=== PATIENT | female | born 1980 | race Caucasian/White ===

== ENCOUNTER 2018-05-08 21:48 | Emergency (ER) | payer SELFPAY ==
[2018-05-08 21:54] VITALS: BP 116/76
[2018-05-08] MEDS ORDERED: NACL 0.9% 1000 ML 1,000 ML IV ONE (22:10)
[2018-05-08 22:50] LABS: Basophils # (Auto) 0.1 K/mm3 (0.0-0.1); Basophils % (Auto) 0.7 % (0.0-1.8); Eosinophils # (Auto) 0.2 K/mm3 (0.0-0.4); Eosinophils % (Auto) 2.4 % (0.0-4.3); Hematocrit 39.3 % (30.3-42.9); Hemoglobin 12.7 gm/dl (10.1-14.3); Lymphocytes % (Auto) 33.3 % (13.4-35.0); Mean Corpuscular HGB Conc 32 % (30-34); Mean Corpuscular Hemoglobin 27 pg (28-32); Mean Corpuscular Volume 84 fl (79-97); Monocytes # (Auto) 0.5 K/mm3 (0.0-0.8); Monocytes % (Auto) 5.5 % (0.0-7.3); Platelet Count 344 K/mm3 (140-440); Red Cell Distribution Width 13.7 % (13.2-15.2)
[2018-05-08 22:59] LABS: HCG Qualitative,Urine Negative (Negative)
[2018-05-08 23:01] LABS: Bilirubin,Urine NEG (Negative); Blood,Urine SM (Negative); Color,Urine Colorless (Yellow); Mucus,Urine FEW /HPF; Protein,Urine <15 mg/dL mg/dL (Negative); Urobilinogen,Urine < 2.0 mg/dL (<2.0); WBC,Urine < 1.0 /HPF (0.0-6.0)
[2018-05-08 23:11] LABS: Alanine Aminotransferase 16 units/L (7-56); Albumin 4.3 g/dL (3.9-5); BUN/Creatinine Ratio 13; Blood Urea Nitrogen 10 mg/dL (7-17); Calcium 9.4 mg/dL (8.4-10.2); Hemolysis Index 8; Lipase 22 units/L (13-60)
--- NOTE | 2018-05-09 02:54 | Cat Scan Report ---
FINAL REPORT PROCEDURE: CT ABDOMEN PELVIS W CON TECHNIQUE: Computerized axial tomography of the abdomen and pelvis was performed after the IV injection of iodinated nonionic contrast. HISTORY: Lower ABD Pain near umbilicus. possible hernia COMPARISON: No prior studies are available for comparison. FINDINGS: Visualized lower thorax: Lungs are clear. There are multiple tiny calcified granulomas bilaterally.. Liver: Normal size and attenuation. Spleen: Normal size and attenuation. Gallbladder and biliary system: Normal. Pancreas: Normal. Adrenals: Normal. Kidneys: Normal. GI tract: There is no bowel obstruction, colitis or enteritis. The appendix is normal.. Lymph nodes and mesentery: Normal. Vasculature: Normal. Bladder: Normal. Reproductive organs: Uterus is unremarkable. There is a 2.8 centimeter cyst in the right ovary.. Peritoneum: There is no free pelvic fluid. There is no free air, abscess or adenopathy.. Musculoskeletal structures: No significant abnormality. Other: No hernias are identified.. IMPRESSION: There is no bowel obstruction, colitis or enteritis. The appendix is normal.. Uterus is unremarkable. There is a 2.8 centimeter cyst in the right ovary.. There is no free pelvic fluid. There is no free air, abscess or adenopathy.. No hernias are identified..
[2018-05-09] MEDS ORDERED: PERCOCET 5/325 PO ONE (03:16)
--- NOTE | 2018-05-09 05:11 | Emergency Department Report ---
ED Abdominal Pain HPI - General Chief Complaint: Abdominal Pain Stated Complaint: ABD PAIN X 2 DAYS Time Seen by Provider: 05/09/18 00:17 Source: patient, family Mode of arrival: Ambulatory Limitations: No Limitations - History of Present Illness MD Complaint: abdominal pain -: Gradual Radiation: none Migration to: no migration Severity: mild Severity scale (0 -10): 1 Quality: sharp Consistency: intermittent Improves With: nothing Worsens With: other (standing or coughing) Associated Symptoms: denies other symptoms - Related Data Previous Rx's Medication Instructions Recorded Last Taken Type Hyoscyamine Subl [Levsin Sl 0.125 0.125 mg SL Q6HR PRN #20 tab 05/09/18 Unknown Rx TAB] Ketorolac [Toradol] 10 mg PO Q6H PRN #12 tablet 05/09/18 Unknown Rx Allergies Allergy/AdvReac Type Severity Reaction Status Date / Time No Known Allergies Allergy Verified 05/09/18 00:31 ED Review of Systems ROS: Stated complaint: ABD PAIN X 2 DAYS Other details as noted in HPI Constitutional: denies: chills, fever Eyes: denies: eye pain, eye discharge, vision change ENT: denies: ear pain, throat pain Respiratory: denies: cough, shortness of breath, wheezing Cardiovascular: denies: chest pain, palpitations Endocrine: no symptoms reported Gastrointestinal: denies: abdominal pain, nausea, diarrhea Genitourinary: denies: urgency, dysuria, discharge Musculoskeletal: denies: back pain, joint swelling, arthralgia Skin: denies: rash, lesions Neurological: denies: headache, weakness, paresthesias Psychiatric: denies: anxiety, depression Hematological/Lymphatic: denies: easy bleeding, easy bruising ED Past Medical Hx - Past Medical History Additional medical history: pt has ovarian cyst presently - Social History Smoking Status: Never Smoker Substance Use Type: None - Medications Home Medications: Home Medications Medication Instructions Recorded Confirmed Last Taken Type Hyoscyamine Subl [Levsin Sl 0.125 0.125 mg SL Q6HR PRN #20 tab 05/09/18 Unknown Rx TAB] Ketorolac [Toradol] 10 mg PO Q6H PRN #12 tablet 05/09/18 Unknown Rx ED Physical Exam - General Limitations: No Limitations General appearance: alert, in no apparent distress - Head Head exam: Present: atraumatic, normocephalic - Eye Eye exam: Present: normal appearance - ENT ENT exam: Present: mucous membranes moist - Neck Neck exam: Present: normal inspection - Respiratory Respiratory exam: Present: normal lung sounds bilaterally. Absent: respiratory distress - Cardiovascular Cardiovascular Exam: Present: regular rate, normal rhythm. Absent: systolic murmur, diastolic murmur, rubs, gallop - GI/Abdominal GI/Abdominal exam: Present: soft, tenderness (tenderness just distal to the umbilicus. Small protrusion is appreciated when increasing intra-abdominal pressures. Area is reducible), normal bowel sounds. Absent: guarding (no [place]. No Rovsing. No Elmer), rebound, rigid, diminished bowel sounds, hyperactive bowel sounds, hypoactive bowel sounds - Extremities Exam Extremities exam: Present: normal inspection. Absent: calf tenderness - Back Exam Back exam: Present: normal inspection, tenderness. Absent: CVA tenderness (R), muscle spasm, paraspinal tenderness, vertebral tenderness - Neurological Exam Neurological exam: Present: alert, oriented X3, CN II-XII intact - Psychiatric Psychiatric exam: Present: normal affect, normal mood. Absent: anxious, flat affect, manic - Skin Skin exam: Present: warm, dry, intact, normal color. Absent: rash ED Course Vital Signs 05/08/18 05/08/18 05/09/18 21:53 22:03 03:49 Temperature 99.1 F 99.1 F Pulse Rate 102 H 102 H 77 Respiratory 18 18 16 Rate Blood Pressure 116/76 116/76 O2 Sat by Pulse 98 96 97 Oximetry ED Medical Decision Making - Lab Data Result diagrams: 05/08/18 22:33 05/08/18 22:33 Critical care attestation.: If time is entered above; I have spent that time in minutes in the direct care of this critically ill patient, excluding procedure time. ED Disposition Clinical Impression: Abdominal pain, Ovarian cyst Disposition: - TO HOME OR SELFCARE Is pt being admited?: No Does the pt Need Aspirin: No Condition: Stable Instructions: Abdominal Pain (ED) Prescriptions: Hyoscyamine Subl [Levsin Sl 0.125 TAB] 0.125 mg SL Q6HR PRN #20 tab PRN Reason: abdominal pain Ketorolac [Toradol] 10 mg PO Q6H PRN #12 tablet PRN Reason: Pain Referrals: [facility] [Provider Group] - 2-3 Days PRIMARY CARE,MD [Primary Care Provider] - 3-5 Days Forms: Accompanied Note, Work/School Release Form(ED)
== END 2018-05-09 03:48 | disposition home or self-care (01) ==
LOC: ED 21:48
DX: R10.9 Unspecified abdominal pain (principal); N83.299 Other ovarian cyst, unspecified side
CPT/HCPCS: 36415; 74177; 80053; 81001; 81025; 83690; 85025; 99284; J7030; Q9967

== ENCOUNTER 2019-01-15 23:27 | Emergency (ER) | payer OTHER ==
[2019-01-15 23:47] VITALS: BP 109/67
[2019-01-16 00:20] LABS: Basophils % (Auto) 0.4 % (0.0-1.8); Eosinophils # (Auto) 0.2 K/mm3 (0.0-0.4); Hematocrit 34.6 % (30.3-42.9); Hemoglobin 11.7 gm/dl (10.1-14.3); Lymphocytes # (Auto) 2.4 K/mm3 (1.2-5.4); Lymphocytes % (Auto) 31.2 % (13.4-35.0); Mean Corpuscular HGB Conc 34 % (30-34); Mean Corpuscular Volume 85 fl (79-97); Monocytes # (Auto) 0.5 K/mm3 (0.0-0.8); Monocytes % (Auto) 6.6 % (0.0-7.3); Platelet Count 312 K/mm3 (140-440); Red Blood Count 4.09 M/mm3 (3.65-5.03); Red Cell Distribution Width 13.6 % (13.2-15.2)
[2019-01-16 00:39] LABS: Bilirubin,Urine NEG (Negative); Color,Urine Yellow (Yellow)
[2019-01-16 00:40] LABS: Amorphous Crystals,Urine Few; Blood,Urine NEG (Negative); Mucus,Urine FEW /HPF; Protein,Urine <15 mg/dL mg/dL (Negative); RBC,Urine < 1.0 /HPF (0.0-6.0); Urobilinogen,Urine < 2.0 mg/dL (<2.0)
[2019-01-16] MEDS ORDERED: TYLENOL PO ONE (02:50)
--- NOTE | 2019-01-16 02:55 | Emergency Department Report ---
ED Female HPI - General Chief complaint: Abdominal Pain Stated complaint: ABD PAIN Time Seen by Provider: 01/16/19 02:51 Source: patient Mode of arrival: Ambulatory Limitations: No Limitations - History of Present Illness Initial comments: Patient is a A0 38-year-old female in no past medical history who is approximately 14 days crustacean and presents to the ED, in no acute onset persistent pelvic pain diffusely for the last 2 days. Patient states that the pain is constant and persistent since onset. Patient denies vaginal bleeding, dysuria, urinary frequency and urgency, vaginal discharge, low back pain, dizziness, fever, chills, nausea, vomiting, headache, cough, chest pain or shortness of breath. MD Complaint: pelvic pain -: Sudden, days(s) (2) Location: suprapubic Radiation: non-radiating, suprapubic Severity: severe Severity scale (0 -10): 7 Quality: cramping, sharp, aching Consistency: constant Improves with: none Worsens with: movement Are you Now?: Yes (14 weeks gestation) Associated Symptoms: abdominal pain. denies: vaginal discharge, vaginal bleeding, nausea/vomiting, fever/chills, headaches, loss of appetite, dysuria, hematuria, rash, seizure, shortness of breath, syncope, weakness - Related Data Sexually active: Yes : 3 Para: 2 A: 0 Previous Rx's Medication Instructions Recorded Last Taken Type Hyoscyamine Subl [Levsin Sl 0.125 0.125 mg SL Q6HR PRN #20 tab 05/09/18 Unknown Rx TAB] Ketorolac [Toradol] 10 mg PO Q6H PRN #12 tablet 05/09/18 Unknown Rx Allergies Allergy/AdvReac Type Severity Reaction Status Date / Time No Known Allergies Allergy Verified 05/09/18 00:31 ED Review of Systems ROS: Stated complaint: ABD PAIN Other details as noted in HPI Constitutional: denies: chills, fever Eyes: denies: eye pain, eye discharge, vision change ENT: denies: ear pain, throat pain Respiratory: denies: cough, shortness of breath, wheezing Cardiovascular: denies: chest pain, palpitations Endocrine: no symptoms reported Gastrointestinal: abdominal pain (suprapubic). denies: nausea, vomiting, diarrhea, constipation, hematemesis, hematochezia Genitourinary: other (Pelvic pain). denies: urgency, dysuria, discharge Musculoskeletal: denies: back pain, joint swelling, arthralgia Skin: denies: rash, lesions Neurological: denies: headache, weakness, paresthesias Psychiatric: denies: anxiety, depression Hematological/Lymphatic: denies: easy bleeding, easy bruising ED Past Medical Hx - Past Medical History Previous Medical History?: Yes Additional medical history: pt has ovarian cyst. Constipation - Surgical History Past Surgical History?: No - Social History Smoking Status: Never Smoker Substance Use Type: None - Medications Home Medications: Home Medications Medication Instructions Recorded Confirmed Last Taken Type Hyoscyamine Subl [Levsin Sl 0.125 0.125 mg SL Q6HR PRN #20 tab 05/09/18 Unknown Rx TAB] Ketorolac [Toradol] 10 mg PO Q6H PRN #12 tablet 05/09/18 Unknown Rx ED Physical Exam - General Limitations: No Limitations General appearance: alert, in no apparent distress - Head Head exam: Present: atraumatic, normocephalic, normal inspection - Eye Eye exam: Present: normal appearance, PERRL, EOMI. Absent: scleral icterus, conjunctival injection, nystagmus, periorbital swelling, periorbital tenderness - ENT ENT exam: Present: normal exam, normal orophraynx, mucous membranes moist, TM's normal bilaterally, normal external ear exam - Neck Neck exam: Present: normal inspection, full ROM. Absent: tenderness, meningismus, lymphadenopathy, thyromegaly - Respiratory Respiratory exam: Present: normal lung sounds bilaterally. Absent: respiratory distress, wheezes, rales, rhonchi, chest wall tenderness, accessory muscle use, decreased breath sounds, prolonged expiratory - Cardiovascular Cardiovascular Exam: Present: regular rate, normal rhythm. Absent: systolic murmur, diastolic murmur, rubs, gallop - GI/Abdominal GI/Abdominal exam: Present: soft, tenderness (Moderately tender suprapubic area with palpation, no guarding or rebound), normal bowel sounds. Absent: hyperactive bowel sounds, hypoactive bowel sounds, mass, bruit - Rectal Rectal exam: Present: deferred - Extremities Exam Extremities exam: Present: normal inspection, full ROM, normal capillary refill - Back Exam Back exam: Present: normal inspection, full ROM. Absent: tenderness, CVA tenderness (R), CVA tenderness (L), muscle spasm, paraspinal tenderness, vertebral tenderness - Neurological Exam Neurological exam: Present: alert, oriented X3, CN II-XII intact, normal gait, reflexes normal - Psychiatric Psychiatric exam: Present: normal affect, normal mood - Skin Skin exam: Present: warm, dry, intact, normal color. Absent: rash ED Course Vital Signs 01/15/19 23:43 Temperature 98.8 F Pulse Rate 82 Respiratory 18 Rate Blood Pressure 109/67 O2 Sat by Pulse 100 Oximetry - Reevaluation(s) Reevaluation #1: 01/16/19 02:56 Patient is alert and oriented 3 and is not in any distress with stable vital signs. Patient was treated in the ED with Tylenol for pain. Lab test results are reviewed and are all unremarkable including urinalysis. The ultrasound shows an IUP approximately 15 weeks and 2 days. heart rate of 152 beats a minute. No abnormalities findings were identified in the ultrasound. Patient was discharged home and advised to maintain a complete pelvic rest, take Tylenol as needed for pain and to follow-up with [employer] physician in 2 days for reevaluation. Patient was also advised to return to the ED immediately if symptoms get worse. 01/16/19 03:00 01/16/19 03:01 ED Medical Decision Making - Lab Data Result diagrams: 01/16/19 00:00 - Radiology Data Radiology results: report reviewed, image reviewed US: IUP of approximately 15 weeks and 2 days, and FHR of 152 bpm. No acute pathology identified - Medical Decision Making Patient is alert and oriented 3 and is not in any distress with stable vital signs. Patient was treated in the ED with Tylenol for pain. Lab test results are reviewed and are all unremarkable including urinalysis. The ultrasound shows an IUP approximately 15 weeks and 2 days. heart rate of 152 beats a minute. No abnormalities findings were identified in the ultrasound. Patient was discharged home and advised to maintain a complete pelvic rest, take Tylenol as needed for pain and to follow-up with [employer] physician in 2 days for reevaluation. Patient was also advised to return to the ED immediately if symptoms get worse. - Differential Diagnosis Threatened miscarriage; Abodminal pain in , Acuet UTI Critical care attestation.: If time is entered above; I have spent that time in minutes in the direct care of this critically ill patient, excluding procedure time. ED Disposition Clinical Impression: Threatened miscarriage, Abdominal pain during in second trimester Disposition: DC- TO HOME OR SELFCARE Is pt being admited?: No Does the pt Need Aspirin: No Condition: Stable Instructions: Threatened Miscarriage (ED), Abdominal Pain (ED) Additional Instructions: COMPLETE pelvic rest, take medications, Tylenol, as needed for pain every 4-6 hours. Follow-up with your [employer] physician in 2-3 days for reevaluation. Return to the ED immediately if symptoms get worse. Referrals: ANIBAL NGO MD [Primary Care Provider] - 3-5 Days Time of Disposition: 02:58 Print Language: JAMAICAN
--- NOTE | 2019-01-16 02:55 | Ultrasound Report ---
PROCEDURE: US OB >= 14 WEEKS FETUS TECHNIQUE: Real-time transabdominal sonography of the uterus, placenta, amniotic fluid, adnexa, and fetus was performed with image documentation. Measurements were obtained to determine age/size. M-mode Doppler was used to document heartbeat. ADDITIONAL GESTATION: None HISTORY: abdominal pain COMPARISONS: None. FINDINGS: MATERNAL: Uterus and cervix: The cervix is closed measures 5.2 cm in length. Adnexa and ovaries: Not visualized. IUP: Single live intrauterine gestation. Position: Cephalic Placental position: Fundal and right lateral, without previa . Amniotic fluid volume Normal. DALIA is 4.0 cm. Cardiac activity: Regular rhythm at 152 bpm. ANATOMY: Not evaluated. BIOMETRY: Biparietal diameter: 2.8 cm corresponding to 15 weeks and 1 day. Head circumference: 10.4 cm corresponding to 14 weeks and 6 days. abdominal circumference: 10.4 cm corresponding to 16 weeks and 2 days. Femur length: 1.6 cm corresponding to 14 weeks and 5 days. Mean Gestational Age (composite criteria) based on today's measurements: 15 weeks and 2 days. Estimated Due Date (earliest scan): 07/08/2019. IMPRESSION: Single live intrauterine gestation at 15 weeks and 2 days. Estimated due date: 07/08/2019. Anatomic survey suggested at 18-20 weeks. This document is electronically signed by Ruben Perez MD., January 16 2019 02:53:56 AM ET
== END 2019-01-16 03:10 | disposition home or self-care (01) ==
LOC: ED 23:27
DX: O20.0 Threatened abortion (principal); Z3A.15 15 weeks gestation of pregnancy; Z79.899 Other long term (current) drug therapy
CPT/HCPCS: 36415; 76805; 81001; 84702; 85025; 99284

== ENCOUNTER 2019-07-05 09:44 | Inpatient (IN) | payer OTHER ==
[2019-07-05] MEDS ORDERED: ePHEDrine SULFATE 50 MG/1 ML INJ IV PRN ×2 (10:51→17:48)
[2019-07-05] MEDS ORDERED: TERBUTALINE 1 MG/1 ML INJ SUB-Q PRN (10:51)
[2019-07-05] MEDS ORDERED: fentaNYL 100 MCG/2 ML INJ IV PRN (10:51)
[2019-07-05] MEDS ORDERED: LIDOCAINE (2%) 20 MG/1 ML VIAL 20 ML MDV INFILTRATI ONE (10:51)
[2019-07-05] MEDS ORDERED: OXYTOCIN 20 UNIT/1000ML DRIP 20 UNITS/1,000 ML BAG IV SCH (11:00)
[2019-07-05] MEDS ORDERED: OXYTOCIN DRIP 30 UNITS/500 ML BAG IV SCH (11:00)
--- NOTE | 2019-07-05 11:06 | History and Physical Report ---
History of Present Illness Date of examination: 07/05/19 Date of admission: 07/05/2019 Chief complaint: Leaking of water from vagina History of present illness: 39 year old presents to L&D with complaint of leaking clear fluid from vagina since 09:00 this morning and contractions which began around 05:00 this morning. Patient reports active movement. Patient denies vaginal bleeding. Patient received care at [facility] and she brings records with her. LMP 10/10/18. EDC 07/17/19. was uncomplicated; patient reports a history of 2 previous vaginal births of 9 lb. babies without complications. Hemoglobin A1C was 5.7 during this . According to records, patient passed her glucose challenge test and this baby is a normal sized baby. labs are as follows: O+, antibody screen negative, rubella immune, hepatitis B surface antigen negative, HIV negative, RPR nonreactive, chlamydia negative, gonorrhea negative, GBS negative, pap smear negative, 1 hour sugar test WNL. Past History Past Medical History: other (chronic constipation, colitis, GERD; history of large babies by vaginal delivery; history of anemia) Past Surgical History: no surgical history [employer] History: chlamydia (2013 and 2015, treated and cured). denies: abnormal PAP smear, gonorrhea, hepatitis B, hepatitis C, herpes, HIV, syphilis, trichomonas Family/Genetic History: diabetes, heart disease Social history: lives with family, full code. denies: smoking, alcohol abuse, prescription drug abuse, IV drug use - Obstetrical History Expected Date of Delivery: 07/17/19 Actual Gestation: 38 Week(s) 2 Day(s) : 3 Para: 2 Hx # Term Pregnancies: 2 Number of Pregnancies: 0 Spontaneous Abortions: 0 Induced : 0 Number of Living Children: 2 Medications and Allergies Allergies Allergy/AdvReac Type Severity Reaction Status Date / Time No Known Allergies Allergy Verified 05/09/18 00:31 Home Medications Medication Instructions Recorded Confirmed Last Taken Type Hyoscyamine Subl [Levsin Sl 0.125 0.125 mg SL Q6HR PRN #20 tab 05/09/18 Unknown Rx TAB] Ketorolac [Toradol] 10 mg PO Q6H PRN #12 tablet 05/09/18 Unknown Rx raNITIdine HCl [Zantac] 150 mg PO Q12H #30 tablet 01/16/19 Unknown Rx Active Meds: Active Medications Ephedrine Sulfate (Ephedrine Sulfate) 10 mg IV Q2M PRN PRN Reason: Hypotension Fentanyl (Sublimaze) 100 mcg IV Q2H PRN PRN Reason: Labor Pain Oxytocin/Sodium Chloride (Pitocin/Ns 20 Unit/1000ml Drip) 20 units in 1,000 mls @ 125 mls/hr IV DIRECT LINA Oxytocin/Sodium Chloride (Pitocin/Ns 30 Unit/500ml) 30 units in 500 mls @ 0 mls/hr IV TITR LINA; Protocol Lactated Ringer's (Lactated Ringers) 1,000 mls @ 125 mls/hr IV DIRECT LINA Lidocaine (Xylocaine 2%) 20 ml INFILTRATI ONCE ONE Stop: 07/05/19 10:52 Terbutaline Sulfate (Brethine) 0.25 mg SUB-Q ONCE PRN PRN Reason: Hyperstimulation/Hypertonicity Review of Systems All systems: negative (leaking of clear fluid from vagina and irregular contractions) - Vital Signs Vital signs: Vital Signs Pulse BP 86 123/71 07/05/19 10:01 07/05/19 10:01 Temp Pulse Resp BP Pulse Ox 97.7 F 86 19 123/71 07/05/19 10:02 07/05/19 10:02 07/05/19 10:02 07/05/19 10:02 - Physical Exam Abdomen: Positive: normal appearance, soft. Negative: distention, tenderness, guarding, rigidity Genitourinary (Female): Positive: normal external genitalia, normal perenium. Negative: perineal/vulvar lesions (no lesions seen on careful exam with bright light upon admission) Vagina: Positive: other (moderate amount of clear fluid leaking from vagina) Uterus: Positive: enlarged (S=D) Anus/Rectum: Positive: normal perianal skin Extremities: Positive: normal. Negative: tenderness, edema - Obstetrical FHR: category 1 Uterine Contraction Monitor Mode: External Cervical Dilatation: 1 Cervical Effacement Percentage: 50 station: -4 Uterine Contraction Pattern: Irregular Uterine Contraction Intensity: Mild Results All other labs normal. Assessment and Plan A: at 38 weeks, 2 days gestation. Spontaneous rupture of membranes. Not yet in active labor. GBS negative. P: Admit. Continuous EFM. Pitocin augmentation of labor. Discussed with patient risks and benefits of Pitocin augmentation of labor. Patient consented to Pitocin augmentation of labor.
[2019-07-05] MEDS: LACTATED RINGERS 1,000 ML IV SCH ×3 (12:51→17:51)
[2019-07-05 12:58] LABS: Hematocrit 30.6 % (30.3-42.9); Hemoglobin 9.8 gm/dl (10.1-14.3); Mean Corpuscular HGB Conc 32 % (30-34); Mean Corpuscular Volume 75 fl (79-97); Platelet Count 305 K/mm3 (140-440); Red Blood Count 4.06 M/mm3 (3.65-5.03); Red Cell Distribution Width 15.5 % (13.2-15.2)
--- NOTE | 2019-07-05 13:03 | Event Note ---
Date: 07/05/19 Noted elevated BPs on chart; spoke with patient's nurse re: this. According to the patient's nurse, the last 3 BPs and pulse recordings (which were elevated) do not belong to our patient; they belong to the patient who is now in the triage bed that our patient was initially in. Instructed nurse to please fix this situation so that the current triage patient's vital signs do not record on our patient's chart. Discussed this with patient and significant other.
[2019-07-05 14:09] LABS: Alanine Aminotransferase 7 units/L (7-56); Albumin 3.3 g/dL (3.9-5); BUN/Creatinine Ratio 20; Blood Urea Nitrogen 10 mg/dL (7-17); Calcium 9.1 mg/dL (8.4-10.2); Hemolysis Index 0; Uric Acid 4.4 mg/dL (3.5-7.6)
[2019-07-05] MEDS ORDERED: BUPIVACAINE/PF (0.25%) 2.5 MG/ML 10 ML VIAL INFILTRATI ONE ×2 (17:20→21:51)
[2019-07-05] MEDS ORDERED: NALOXONE 2 MG/2 ML INJ IV PRN (17:48)
--- NOTE | 2019-07-05 17:48 | Anesthesia Consultation ---
Anesthesia Consult and Med Hx Date of service: 07/05/19 - Airway Anesthetic Teeth Evaluation: Good ROM Head & Neck: Adequate Mental/Hyoid Distance: Adequate Mallampati Class: Class II Intubation Access Assessment: Good - Pulmonary Exam CTA: Yes - Cardiac Exam Cardiac Exam: RRR - Pre-Operative Health Status ASA Pre-Surgery Classification: ASA2, Emergency Proposed Anesthetic Plan: Epidural - Pulmonary Hx Asthma: No - Cardiovascular System Hx Hypertension: No - Central Nervous System Hx Seizures: No Hx Psychiatric Problems: No - Gastrointestinal Hx Gastroesophageal Reflux Disease: Yes - Endocrine Hx Renal Disease: No Hx Hypothyroidism: No Hx Hyperthyroidism: No - Hematic Hx Anemia: Yes Hx Sickle Cell Disease: No - Other Systems Hx Alcohol Use: No
[2019-07-05] MEDS ORDERED: fentaNYL-BUPIV 2 MCG/ML-0.125% 200 MCG/100 ML BAG EPIDURAL SCH (18:00)
--- NOTE | 2019-07-05 20:18 | Event Note ---
Date: 07/05/19 SVE -.
[2019-07-06] MEDS ORDERED: AMPICILLIN/NS 2 GM/100 ML 2 GM/100 ML BAG IV ONE (00:05)
[2019-07-06] MEDS ORDERED: ACETAMINOPHEN 325 MG/10.15 ML ORAL LIQD UNIT DOSE ONE (02:31)
[2019-07-06] MEDS ORDERED: GENTAMICIN 100 MG in SODIUM CHLORIDE 0.9% 100 ML IV SCH (02:33)
--- NOTE | 2019-07-06 02:48 | Event Note ---
Date: 07/06/19 SVE: thin anterior lip, +1 station. FHR baseline 155 with moderate to minimal variability. Variable FHR decelerations noted with contractions, decreasing to 80s-100s with return to normal baseline. Patient positioned in lateral position and oxygen applied per face mask at 10 LPM. Maternal temperature 101.5 per RN. Patient has been receiving Ampicillin and Gentamicin now started also. PO Tylenol given. Contacted Dr. Lisa and asked him to come in to expedite delivery due to variable FHR decelerations despite position change and decreasing FHR variability.
[2019-07-06] MEDS ORDERED: ACETAMINOPHEN 325 MG/10.15 ML ORAL LIQD UNIT DOSE PO ONE (03:00)
[2019-07-06] MEDS ORDERED: GENTAMICIN/NS 100 MG/100 ML 100 MG/100 ML BAG IV SCH (03:00)
[2019-07-06] MEDS ORDERED: OXYTOCIN 10 UNIT/1 ML INJ ONE (03:48)
[2019-07-06] MEDS ORDERED: miSOPROStol 200 MCG TAB ONE (03:56)
[2019-07-06] MEDS ORDERED: AMPICILLIN/NS 1 GM/50 ML 1 GM/50 ML BAG IV SCH (04:09)
[2019-07-06] MEDS ORDERED: BUTORPHANOL 2 MG/1 ML INJ ONE (04:11)
[2019-07-06] MEDS: LACTATED RINGERS 1,000 ML IV SCH (04:30)
[2019-07-06] MEDS ORDERED: MAGNESIUM HYDROXIDE (MOM) ORAL LIQD UDC PO PRN (05:24)
[2019-07-06] MEDS ORDERED: WITCH HAZEL/ GLYCERIN PAD TP PRN (05:24)
[2019-07-06] MEDS ORDERED: LANOLIN/ZINC/DIMETHICONE (LANSINOH) 7 GM TP PRN (05:24)
--- NOTE | 2019-07-06 05:32 | Procedure Note ---
OB Delivery Note - Delivery Date of Delivery: 07/06/19 Surgeon: DA GUTIERREZ Estimated blood loss: other (350 cc) - Vaginal Delivery presentation: vertex Delivery position: OA Intrapartum events: febrile- temp >100.3, mult.variable deceleratio, shoulder dystocia Delivery induction: oxytocin Delivery augmentation: pitocin Delivery monitor: external FHT, external uterine Route of delivery: Delivery placenta: spontaneous Delivery cord: 3 umbilical vessels Episiotomy: midline Delivery laceration: 2nd degree Delivery repair: vicryl Anesthesia: local, epidural Delivery comments: Spontaneous vaginal delivery at 03:48 of liveborn male weighing 3993 grams over 2nd degree midline episiotomy with apgars of 7/9. Left anterior shoulder dystocia, resolved with McRobers maneuver, suprapubic pressure, repositioning of shoulders to oblique. Immediately after 3 vessel cord was double clamped and cut and baby was taken to radiant warmer. NICU present for delivery. Spontaneous cry and respirations. Cord blood obtained. Spontaneous delivery of intact placenta and membranes at 03:53. EBL 350 cc. IM Pitocin (IV had come out) and rectal Cytotec given to control bleeding. Fundus firm and midline. 2nd degree midline episiotomy repaired with 2-0 vicryl and 3-0 vicryl in usual sterile fashion. No other lacerations noted. Vaginal sweep negative. Sponge count correct. Mother and baby stable.
[2019-07-06] MEDS ORDERED: AMPICILLIN/NS 2 GM/100 ML 2 GM/100 ML BAG IV SCH (06:00)
[2019-07-06] MEDS: IBUPROFEN 800 MG TAB PO PRN (06:00)
[2019-07-06] MEDS ORDERED: IBUPROFEN 600 MG TAB PO SCH (06:00)
[2019-07-06] MEDS: HYDROcodone/ACETAMINOPHEN 5-325 MG TAB PO PRN ×3 (06:00→20:21)
[2019-07-06] MEDS ORDERED: miSOPROStol 200 MCG TAB PR ONE (06:12)
[2019-07-06] MEDS ORDERED: OXYTOCIN 10 UNIT/1 ML INJ IM ONE (06:12)
--- NOTE | 2019-07-06 09:03 | Post Anesthesia Evaluation ---
- Post Anesthesia Evaluation Patient Participated: Yes Airway Patent: Yes Stable Respiratory Function: Yes Nausea/Vomiting: No Temp > 96.8F: Yes Pain Manageable: Yes Adequeate Hydration: Yes Anesthesia Complications: No Block Receding Appropriately: Yes Patient on Ventilator: No
[2019-07-06] MEDS ORDERED: BENZOCAINE/MENTHOL 20/0.5% TOP SPRAY 56 GM TP ONE (09:04)
[2019-07-06] MEDS ORDERED: BENZOCAINE/MENTHOL 20/0.5% TOP SPRAY 56 GM TP PRN (09:45)
[2019-07-06] MEDS: DOCUSATE SODIUM 100 MG CAP PO SCH ×2 (11:11→21:16)
[2019-07-06 16:30] LABS: Hematocrit 23.3 % (30.3-42.9); Hemoglobin 7.3 gm/dl (10.1-14.3)
[2019-07-06] MEDS ORDERED: LACTATED RINGERS 1,000 ML IV SCH (17:00)
[2019-07-06] MEDS ORDERED: LACTATED RINGERS 250 ML IV ONE (18:53)
[2019-07-06] MEDS: FERROUS SULFATE 325 MG TAB PO SCH ×2 (19:26→21:16)
[2019-07-07] MEDS: DOCUSATE SODIUM 100 MG CAP PO SCH ×2 (09:25→21:32)
[2019-07-07] MEDS: FERROUS SULFATE 325 MG TAB PO SCH ×2 (09:26→21:31)
--- NOTE | 2019-07-07 10:48 | Progress Note ---
Assessment and Plan - Patient Problems (1) Status post normal vaginal delivery Current Visit: Yes Status: Acute Plan to address problem: PPD 1 - stable Continue routine orders Anticipate discharge in 24 hours (2) Anemia due to blood loss, acute Current Visit: Yes Status: Acute Plan to address problem: Reports fatigue but denies dizziness, SOB, palpitations or headache On ferrous sulfate 325mg PO BID Continue current management Repeat H&H in 24 hours Subjective - Subjective Date of service: 07/07/19 Principal diagnosis: PPD #1; s/p Interval history: see H&P, Event Notes and OB/Delivery Procedure Note Patient reports: appetite normal, voiding normally, pain well controlled, other (fatigue), no dizzy ambulation : doing well Objective - Vital Signs Latest vital signs: Vital Signs Temp Pulse Resp BP BP BP Pulse Ox 07/07/19 08:53 97.6 F 85 18 103/52 95 07/07/19 01:02 98.7 F 91 H 18 98/50 97 07/06/19 21:21 18 07/06/19 20:21 18 07/06/19 16:18 98.1 F 76 20 88/44 87/45 96 07/06/19 12:10 98.2 F 20 L 20 94/38 96 Intake and Output 07/06/19 07/07/19 07/07/19 23:59 07:59 15:59 Intake Total 480 480 Balance 480 480 Intake: Intake, Free Water 480 480 Other: # Voids Void 2 1 - Exam Vulva: both: laceration/episiotomy Uterus: Present: normal, firm, fundal height at umbilicus Extremities: Present: normal Comments: small lochia - Labs Labs: Abnormal lab results 07/06/19 Range/Units 16:08 Hgb 7.3 L (10.1-14.3) gm/dl Hct 23.3 L D (30.3-42.9) %
[2019-07-07] MEDS: IBUPROFEN 800 MG TAB PO PRN (14:00)
[2019-07-07] MEDS: HYDROcodone/ACETAMINOPHEN 5-325 MG TAB PO PRN (20:20)
[2019-07-08] MEDS: IBUPROFEN 800 MG TAB PO PRN (05:07)
[2019-07-08 05:55] LABS: Hematocrit 21.1 % (30.3-42.9); Hemoglobin 6.8 gm/dl (10.1-14.3)
[2019-07-08] MEDS: FERROUS SULFATE 325 MG TAB PO SCH (09:17)
[2019-07-08] MEDS: DOCUSATE SODIUM 100 MG CAP PO SCH (09:17)
[2019-07-08] MEDS: HYDROcodone/ACETAMINOPHEN 5-325 MG TAB PO PRN (09:17)
--- NOTE | 2019-07-08 10:20 | Discharge Summary ---
Providers - Providers Date of Admission: 07/05/19 11:27 Date of discharge: 07/08/19 Attending physician: RANCHO SANTOS Primary care physician: ANIBAL NGO Hospitalization Reason for admission: active labor, IUP at term Delivery: Episiotomy: none Laceration: 2nd degree (healing as expected) Other procedures: none complications: none [place] baby: male Hospital course: See admission H & P; OB delivery summary and PP progress notes Condition at discharge: Stable Disposition: [id number] TO HOME OR SELFCARE - Discharge Diagnoses (1) Status post normal vaginal delivery Status: Acute (2) Anemia due to blood loss, acute Status: Acute Plan - Discharge Medications Prescriptions: Ferrous Sulfate [Feosol 325 MG tab] 325 mg PO BID 30 Days #60 tablet - Provider Discharge Summary Activity: routine, no sex for 6 weeks, no heavy lifting 4 weeks, no strenuous exercise Diet: other (Iron rich diet) Instructions: routine Additional instructions: [] Smoking cessation referral if applicable(refer to patient education folder for contact #) [] Refer to [facility] Booklet Call your doctor immediately for: * Fever > 100.5 * Heavy vaginal bleeding ( >1 pad per hour) * Severe persistent headache * Shortness of breath * Reddened, hot, painful area to leg or breast * Drainage or odor from incision. * Keep laceration site clean and dry at all times and follow doctor's instructions regarding bathing/showering * Continue daily oral iron supplementation as directed with OJ - Follow up plan Follow up: RANCHO SANTOS MD [Staff Physician] - 6 Weeks
[2019-07-08] MEDS ORDERED: IRON DEXTRAN COMPLEX 100 MG/2 ML INJ IM NR (12:30)
[2019-07-08 16:46] VITALS: BP 109/63
== END 2019-07-08 16:50 | disposition home or self-care (01) | DRG 806 ==
LOC: TRG 09:44 → LD 11:27 → OB 07-06 07:55
PROVIDERS: ADMIT Obstetrics & Gynecology; ATTEND Obstetrics & Gynecology
PROC: 10E0XZZ Delivery of Products of Conception, External Approach (ICD-10-PCS; principal; 2019-07-06)
PROC: 0KQM0ZZ Repair Perineum Muscle, Open Approach (ICD-10-PCS; 2019-07-06)
PROC: 3E033VJ Introduction of Other Hormone into Peripheral Vein, Percutaneous Approach (ICD-10-PCS; 2019-07-06)
PROC: 3E0R3BZ Introduction of Anesthetic Agent into Spinal Canal, Percutaneous Approach (ICD-10-PCS; 2019-07-06)
PROC: 00HU33Z Insertion of Infusion Device into Spinal Canal, Percutaneous Approach (ICD-10-PCS; 2019-07-06)
PROC: 0W8NXZZ Division of Female Perineum, External Approach (ICD-10-PCS; 2019-07-06)
DX: O66.0 Obstructed labor due to shoulder dystocia (principal); D62 Acute posthemorrhagic anemia; Z37.0 Single live birth; O99.03 Anemia complicating the puerperium; O99.62 Diseases of the digestive system complicating childbirth; K21.9 Gastro-esophageal reflux disease without esophagitis; K59.09 Other constipation; O76 Abnormality in fetal heart rate and rhythm complicating labor and delivery; O70.1 Second degree perineal laceration during delivery; Z3A.38 38 weeks gestation of pregnancy; Z83.3 Family history of diabetes mellitus; Z82.49 Family history of ischemic heart disease and other diseases of the circulatory system; Z79.899 Other long term (current) drug therapy
CPT/HCPCS: 36415; 59025; 80053; 83615; 84550; 85014; 85018; 85027; 86850; 86900; 86901; 88307; 96360; 96361; 96365; 96366; 96367; 96368; 96372; 96374; G0378; A6250; J0290; J0595; J1580; J1750; J2590; J3010; J7120

== ENCOUNTER 2019-07-10 12:26 | Emergency (ER) | payer OTHER ==
--- NOTE | 2019-07-10 12:32 | Emergency Department Report ---
Blank Doc - Documentation Documentation: 39-year-old female that presents with urinary retention s/p vaginal delivery l ast week. Was sent by OBGYN. This initial assessment/diagnostic orders/clinical plan/treatment(s) is/are subject to change based on patient's health status, clinical progression and re- assessment by fellow clinical providers in the ED. Further treatment and workup at subsequent clinical providers discretion. Patient/guardians urged not to elope from the ED as their condition may be serious if not clinically assessed and managed. Initial orders include: 1- Patient sent to MAIN for further evaluation and treatment 2- labs 3- UA
[2019-07-10 12:50] VITALS: BP 113/65
[2019-07-10 13:07] LABS: Basophils % (Auto) 0.4 % (0.0-1.8); Eosinophils # (Auto) 0.1 K/mm3 (0.0-0.4); Eosinophils % (Auto) 1.7 % (0.0-4.3); Hematocrit 23.1 % (30.3-42.9); Hemoglobin 7.6 gm/dl (10.1-14.3); Lymphocytes # (Auto) 1.1 K/mm3 (1.2-5.4); Lymphocytes % (Auto) 13.7 % (13.4-35.0); Mean Corpuscular HGB Conc 33 % (30-34); Mean Corpuscular Volume 76 fl (79-97); Monocytes # (Auto) 0.5 K/mm3 (0.0-0.8); Monocytes % (Auto) 6.3 % (0.0-7.3); Platelet Count 463 K/mm3 (140-440); Red Blood Count 3.04 M/mm3 (3.65-5.03)
[2019-07-10 13:25] LABS: Alanine Aminotransferase 33 units/L (7-56); Albumin 3.2 g/dL (3.9-5); BUN/Creatinine Ratio 17; Blood Urea Nitrogen 15 mg/dL (7-17); Calcium 9.2 mg/dL (8.4-10.2); Hemolysis Index 0
[2019-07-10 13:26] LABS: Bacteria,Urine 1+ /HPF (Negative); Bilirubin,Urine NEG (Negative); Blood,Urine SM (Negative); Color,Urine Yellow (Yellow); Protein,Urine <15 mg/dL mg/dL (Negative); Urobilinogen,Urine < 2.0 mg/dL (<2.0)
--- NOTE | 2019-07-10 14:41 | Emergency Department Report ---
ED Female HPI - General Chief complaint: Urogenital-Female Stated complaint: CANT URINATE Time Seen by Provider: 07/10/19 12:30 Source: patient Mode of arrival: Wheelchair Limitations: Language Barrier - History of Present Illness Initial comments: 39 yo F s/p vaginal delivery 4 days ago presents to ED from TERRITORY ACCOUNT EXECUTIVE's office for urinary retention. Pt states she was able to urinate this morning, but was only a small amount. Pt went to [facility] earlier and was instructed to come to the ER for a Rodriguez catheter, which was placed by RN prior to me seeing her. Complaint: other (urinary retention) -: This morning Severity: severe Quality: cramping Consistency: constant Improves with: none Worsens with: none Are you Now?: No Associated Symptoms: abdominal pain - Related Data Home Medications Medication Instructions Recorded Confirmed Last Taken Vitamin 1 tab PO DAILY 07/05/19 07/05/19 1 Day Ago ~07/04/19 1 Tablet Previous Rx's Medication Instructions Recorded Last Taken Type Hyoscyamine Subl [Levsin Sl 0.125 0.125 mg SL Q6HR PRN #20 tab 05/09/18 Unknown Rx TAB] Ketorolac [Toradol] 10 mg PO Q6H PRN #12 tablet 05/09/18 Unknown Rx raNITIdine HCl [Zantac] 150 mg PO Q12H #30 tablet 01/16/19 Unknown Rx Ferrous Sulfate [Feosol 325 MG tab] 325 mg PO BID 30 Days #60 tablet 07/08/19 Unknown Rx Fluconazole [Diflucan TAB] 150 mg PO ONCE #1 tablet 07/10/19 Unknown Rx Allergies Allergy/AdvReac Type Severity Reaction Status Date / Time No Known Allergies Allergy Verified 05/09/18 00:31 ED Review of Systems ROS: Stated complaint: CANT URINATE Other details as noted in HPI Comment: All other systems reviewed and negative Constitutional: denies: chills, fever Genitourinary: other (reports difficulty urinating) ED Past Medical Hx - Past Medical History Previous Medical History?: No Hx Hypertension: No Hx Diabetes: No Hx Deep Vein Thrombosis: No Hx Renal Disease: No Hx Sickle Cell Disease: No Hx Seizures: No Hx Asthma: No Hx HIV: No Additional medical history: pt has ovarian cyst. Constipation - Surgical History Past Surgical History?: No - Social History Smoking Status: Never Smoker Substance Use Type: None - Medications Home Medications: Home Medications Medication Instructions Recorded Confirmed Last Taken Type Hyoscyamine Subl [Levsin Sl 0.125 0.125 mg SL Q6HR PRN #20 tab 05/09/18 07/05/19 Unknown Rx TAB] Ketorolac [Toradol] 10 mg PO Q6H PRN #12 tablet 05/09/18 07/05/19 Unknown Rx raNITIdine HCl [Zantac] 150 mg PO Q12H #30 tablet 01/16/19 07/05/19 Unknown Rx Vitamin 1 tab PO DAILY 07/05/19 07/05/19 1 Day Ago History ~07/04/19 1 Tablet Ferrous Sulfate [Feosol 325 MG tab] 325 mg PO BID 30 Days #60 tablet 07/08/19 Unknown Rx Fluconazole [Diflucan TAB] 150 mg PO ONCE #1 tablet 07/10/19 Unknown Rx ED Physical Exam - General Limitations: Language Barrier General appearance: alert, in no apparent distress - Head Head exam: Present: atraumatic, normocephalic - Eye Eye exam: Present: normal appearance - ENT ENT exam: Present: mucous membranes moist - Neck Neck exam: Present: normal inspection - Respiratory Respiratory exam: Present: normal lung sounds bilaterally. Absent: respiratory distress - Cardiovascular Cardiovascular Exam: Present: regular rate, normal rhythm - GI/Abdominal GI/Abdominal exam: Present: soft. Absent: distended, tenderness - External exam: Present: other (Rodriguez catheter in place, clear urine in bag) - Extremities Exam Extremities exam: Present: normal inspection - Neurological Exam Neurological exam: Present: alert, oriented X3 - Psychiatric Psychiatric exam: Present: normal affect, normal mood - Skin Skin exam: Present: warm, dry, intact, normal color ED Course Vital Signs 07/10/19 07/10/19 07/10/19 12:30 12:42 12:46 Temperature 98.6 F Pulse Rate 83 Respiratory 16 Rate Blood Pressure 107/68 113/65 O2 Sat by Pulse 98 99 100 Oximetry 07/10/19 12:50 Temperature Pulse Rate Respiratory 18 Rate Blood Pressure O2 Sat by Pulse 100 Oximetry ED Medical Decision Making - Lab Data Result diagrams: 07/10/19 12:48 07/10/19 12:48 - Medical Decision Making 39-year-old female with urinary retention. Rodriguez currently in place. Urine shows 3+ yeast, so will give prescription for Diflucan. Patient advised to follow up with her TERRITORY ACCOUNT EXECUTIVE tomorrow. Return precautions given. - Differential Diagnosis UTI, urinary retention Critical care attestation.: If time is entered above; I have spent that time in minutes in the direct care of this critically ill patient, excluding procedure time. ED Disposition Clinical Impression: Acute urinary retention Disposition: TO HOME OR SELFCARE Is pt being admited?: No Condition: Stable Instructions: Rodriguez Catheter Placement and Care (ED), Acute Urinary Retention in Women (ED), Urinary Leg Bag (GEN) Prescriptions: Fluconazole [Diflucan TAB] 150 mg PO ONCE #1 tablet Referrals: PRIMARY CAREMD [Referring] - 24 Hours [facility] [Provider Group] - 24 Hours Time of Disposition: 14:46
== END 2019-07-10 15:42 | disposition home or self-care (01) ==
LOC: ED 12:26
DX: R33.9 Retention of urine, unspecified (principal); R10.9 Unspecified abdominal pain; K59.00 Constipation, unspecified; Z79.899 Other long term (current) drug therapy
CPT/HCPCS: 36415; 51702; 80053; 81001; 85025

== ENCOUNTER 2019-07-27 23:32 | Observation (INO) | payer OTHER ==
[2019-07-28] MEDS ORDERED: ACETAMINOPHEN 500 MG TAB PO ONE (00:28)
[2019-07-28] MEDS ORDERED: SODIUM CHLORIDE 0.9% 1000 ML 1,000 ML IV ONE (00:28)
[2019-07-28 00:30] LABS: Hematocrit 30.6 % (30.3-42.9); Hemoglobin 9.7 gm/dl (10.1-14.3); Mean Corpuscular HGB Conc 32 % (30-34); Mean Corpuscular Volume 78 fl (79-97); Platelet Count 456 K/mm3 (140-440); Red Blood Count 3.93 M/mm3 (3.65-5.03); Red Cell Distribution Width 18.3 % (13.2-15.2)
[2019-07-28 00:54] LABS: Alanine Aminotransferase 12 units/L (7-56); BUN/Creatinine Ratio 20; Blood Urea Nitrogen 16 mg/dL (7-17); Calcium 9.3 mg/dL (8.4-10.2); Hemolysis Index 22
[2019-07-28 01:29] LABS: Bacteria,Urine 1+ /HPF (Negative); Bilirubin,Urine NEG (Negative); Blood,Urine NEG (Negative); Color,Urine Yellow (Yellow); Mucus,Urine FEW /HPF; Protein,Urine <15 mg/dL mg/dL (Negative); Urobilinogen,Urine < 2.0 mg/dL (<2.0)
[2019-07-28 01:30] LABS: Hypochromasia 1+; Total Cells Counted 100
[2019-07-28 01:33] LABS: HCG Qualitative,Urine Negative (Negative)
[2019-07-28] MEDS ORDERED: SULFAMETHOXAZOLE/TRIMETHOPRIM 800/160MG DS TAB PO ONE (01:34)
[2019-07-28] MEDS ORDERED: NITROFURANTOIN MONOHYD/M-CRYST 100 MG CAP PO ONE (01:39)
--- NOTE | 2019-07-28 01:39 | Emergency Department Report ---
ED Abdominal Pain HPI - General Chief Complaint: Abdominal Pain Stated Complaint: ABD PAIN Time Seen by Provider: 07/28/19 00:15 Source: patient Mode of arrival: Ambulatory Limitations: Language Barrier (patient refuses interpretor reports she would like her friend to interpret at bedside) - History of Present Illness MD Complaint: abdominal pain (left side) -: Gradual, days(s) (1) Migration to: no migration Severity: mild Severity scale (0 -10): 1 Quality: cramping Consistency: intermittent Improves With: nothing Worsens With: nothing Associated Symptoms: constipation (reports vaginal delivery approximately 3 weeks ago. Reports currently on colace for constipation. Reports having problems with constipation). denies: nausea, vomiting, diarrhea, fever, chills, dysuria, hematemesis, hematochezia, melena, hematuria, anorexia, syncope - Related Data Home Medications Medication Instructions Recorded Confirmed Last Taken Vitamin 1 tab PO DAILY 07/05/19 07/05/19 1 Day Ago ~07/04/19 1 Tablet Previous Rx's Medication Instructions Recorded Last Taken Type Hyoscyamine Subl [Levsin Sl 0.125 0.125 mg SL Q6HR PRN #20 tab 05/09/18 Unknown Rx TAB] Ketorolac [Toradol] 10 mg PO Q6H PRN #12 tablet 05/09/18 Unknown Rx raNITIdine HCl [Zantac] 150 mg PO Q12H #30 tablet 01/16/19 Unknown Rx Ferrous Sulfate [Feosol 325 MG tab] 325 mg PO BID 30 Days #60 tablet 07/08/19 Unknown Rx Fluconazole [Diflucan TAB] 150 mg PO ONCE #1 tablet 07/10/19 Unknown Rx Nitrofurantoin Waller/M-Cryst 100 mg PO Q12HR #14 capsule 07/28/19 Unknown Rx [Macrobid CAP] Allergies Allergy/AdvReac Type Severity Reaction Status Date / Time No Known Allergies Allergy Verified 05/09/18 00:31 ED Review of Systems ROS: Stated complaint: ABD PAIN Other details as noted in HPI Other: GENERAL: No weight change, fatigue, fever, chills, or night sweats SKIN: No changes in skin or hair, no itching, no rashes, no jaundice HEAD: No trauma EYES: No blurriness, tearing, itching, acute visual loss, conjunctival discoloration, or scleral icterus EARS: No hearing loss, tinnitus, vertigo, or earache NOSE: No rhinorrhea, stuffiness, sneezing, itching, or epistaxis MOUTH: No bleeding gums, hoarseness, sore throat, or swelling CARDIAC: No new murmur, chest pain, palpitations, dyspnea on exertion, orthopnea, PND, or edema RESPIRATORY: No shortness of breath, wheeze, cough, sputum production, hemoptysis GI: Left sided abdominal pain and constipation. No nausea, vomiting, dysphagia, diarrhea, hematemesis, melena, hematochezia URINARY: No frequency, urgency, polyuria, dysuria, hematuria, or incontinence MUSCULOSKELETAL: No muscle weakness, joint stiffness, decrease in range of motion, redness, swelling NEUROLOGIC: No headache, syncope, loss of sensation, numbness, tingling, tremors, weakness, paralysis, seizures HEMATOLOGIC: No anemia, easy bruising, bleeding, petechiae, or purpura ENDOCRINE: No hot or cold intolerance, sweating, polyuria, polydipsia or, polyphagia no thyroid problems PSYCHIATRIC: No change in mood, no anxiety, no depression GENITAL: Female: No dishcarge, no bleeding, no frequency or dysmenorrhea ED Past Medical Hx - Past Medical History Previous Medical History?: Yes Hx Hypertension: No Hx Diabetes: No Hx Deep Vein Thrombosis: No Hx Renal Disease: No Hx Sickle Cell Disease: No Hx Seizures: No Hx Asthma: No Hx HIV: No Additional medical history: pt has ovarian cyst. Constipation - Surgical History Past Surgical History?: No - Social History Smoking Status: Never Smoker Substance Use Type: None - Medications Home Medications: Home Medications Medication Instructions Recorded Confirmed Last Taken Type Hyoscyamine Subl [Levsin Sl 0.125 0.125 mg SL Q6HR PRN #20 tab 05/09/18 07/05/19 Unknown Rx TAB] Ketorolac [Toradol] 10 mg PO Q6H PRN #12 tablet 05/09/18 07/05/19 Unknown Rx raNITIdine HCl [Zantac] 150 mg PO Q12H #30 tablet 01/16/19 07/05/19 Unknown Rx Vitamin 1 tab PO DAILY 07/05/19 07/05/19 1 Day Ago History ~07/04/19 1 Tablet Ferrous Sulfate [Feosol 325 MG tab] 325 mg PO BID 30 Days #60 tablet 07/08/19 Unknown Rx Fluconazole [Diflucan TAB] 150 mg PO ONCE #1 tablet 07/10/19 Unknown Rx Nitrofurantoin Waller/M-Cryst 100 mg PO Q12HR #14 capsule 07/28/19 Unknown Rx [Macrobid CAP] ED Physical Exam - General Limitations: Language Barrier - Other Other exam information: GENERAL: Patient in no acute distress HEAD: Normocephalic, atraumatic EYES: PERRLA, EOM intact, no scleral icterus, no conjunctival hemorrhage, visual stephens and acuity wnl NOSE: No tenderness, discharge, sinus tenderness MOUTH: No erythema, bleeding, exudate HEART: Regular rate and rhythm, no murmur, S1-S2 are auscultated, no edema, pulses are symmetric LUNGS: No respiratory distress. Bilateral breath sounds, No tachypnea, No retractions, No wheezing, rales, rhonchi ABDOMEN: Normal bowel sounds, abdomen soft, no tenderness, no rebound, no guarding, no distention, no masses, no CVA tenderness MUSCULOSKELETAL: Normal joint range of motion, no redness, no swelling, no tenderness NEUROLOGIC: Gross motor/sensation intact SKIN: Skin is warm and dry, no wounds, no rashes ED Course Vital Signs 07/27/19 23:43 Temperature 98.0 F Pulse Rate 80 Respiratory 18 Rate Blood Pressure 102/50 O2 Sat by Pulse 98 Oximetry ED Medical Decision Making - Lab Data Result diagrams: 07/28/19 00:06 07/28/19 00:06 Laboratory Results - last 24 hr 07/28/19 07/28/19 07/28/19 00:06 00:06 00:06 WBC 7.0 RBC 3.93 Hgb 9.7 L Hct 30.6 MCV 78 L MCH 25 L MCHC 32 RDW 18.3 H Plt Count 456 H Baso % (Auto) Pickle Water Pump Operator Add Manual Diff Complete Total Counted 100 Seg Neuts % (Manual) 44.0 Band Neutrophils % 0 Lymphocytes % (Manual) 45.0 H Reactive Lymphs % (Man) 0 Monocytes % (Manual) 6.0 Eosinophils % (Manual) 4.0 Basophils % (Manual) 1.0 Metamyelocytes % 0 Myelocytes % 0 Promyelocytes % 0 Blast Cells % 0 Nucleated RBC % Not Reportable Seg Neutrophils # Man 3.1 Band Neutrophils # 0.0 Lymphocytes # (Manual) 3.2 Abs React Lymphs (Man) 0.0 Monocytes # (Manual) 0.4 Eosinophils # (Manual) 0.3 Basophils # (Manual) 0.1 Metamyelocytes # 0.0 Myelocytes # 0.0 Promyelocytes # 0.0 Blast Cells # 0.0 WBC Morphology Not Reportable Hypersegmented Neuts Not Reportable Hyposegmented Neuts Not Reportable Hypogranular Neuts Not Reportable Smudge Cells Not Reportable Toxic Granulation Not Reportable Toxic Vacuolation Not Reportable Dohle Bodies Not Reportable Pelger-Huet Anomaly Not Reportable Dotty Rods Not Reportable Platelet Estimate Not Reportable Clumped Platelets Not Reportable Plt Clumps, EDTA Not Reportable Large Platelets Not Reportable Giant Platelets Not Reportable Platelet Satelliting Not Reportable Plt Morphology Comment Not Reportable RBC Morphology Not Reportable Dimorphic RBCs Not Reportable Polychromasia Not Reportable Hypochromasia 1+ Poikilocytosis Not Reportable Anisocytosis Not Reportable Microcytosis Not Reportable Macrocytosis Not Reportable Spherocytes Not Reportable Pappenheimer Bodies Not Reportable Sickle Cells Not Reportable Target Cells Not Reportable Tear Drop Cells Not Reportable Ovalocytes Not Reportable Helmet Cells Not Reportable Kaplan-Ardencroft Bodies Not Reportable [place] Rings Not Reportable [place] Cells Not Reportable Bite Cells Not Reportable Crenated Cell Not Reportable Elliptocytes Not Reportable Acanthocytes (Spur) Not Reportable Rouleaux Not Reportable Hemoglobin C Crystals Not Reportable Schistocytes Not Reportable Malaria parasites Not Reportable [place] Bodies Not Reportable Hem Pathologist Commnt No Sodium 139 Potassium 4.0 Chloride 102.0 Carbon Dioxide 24 Anion Gap 17 BUN 16 Creatinine 0.8 Estimated GFR > 60 BUN/Creatinine Ratio 20 Glucose 104 H Calcium 9.3 Total Bilirubin 0.20 AST 26 ALT 12 Alkaline Phosphatase 107 Total Protein 7.4 Albumin 4.0 Albumin/Globulin Ratio 1.2 Lipase 27 Urine Color Urine Turbidity Urine pH Ur Specific [place] Urine Protein Urine Glucose (UA) Urine Ketones Urine Blood Urine Nitrite Urine Bilirubin Urine Urobilinogen Ur Leukocyte Esterase Urine WBC (Auto) Urine RBC (Auto) U Epithel Cells (Auto) Urine Bacteria (Auto) Urine Mucus Urine Yeast (Budding) Urine HCG, Qual 07/28/19 00:29 WBC RBC Hgb Hct MCV MCH MCHC RDW Plt Count Baso % (Auto) Add Manual Diff Total Counted Seg Neuts % (Manual) Band Neutrophils % Lymphocytes % (Manual) Reactive Lymphs % (Man) Monocytes % (Manual) Eosinophils % (Manual) Basophils % (Manual) Metamyelocytes % Myelocytes % Promyelocytes % Blast Cells % Nucleated RBC % Seg Neutrophils # Man Band Neutrophils # Lymphocytes # (Manual) Abs React Lymphs (Man) Monocytes # (Manual) Eosinophils # (Manual) Basophils # (Manual) Metamyelocytes # Myelocytes # Promyelocytes # Blast Cells # WBC Morphology Hypersegmented Neuts Hyposegmented Neuts Hypogranular Neuts Smudge Cells Toxic Granulation Toxic Vacuolation Dohle Bodies Pelger-Huet Anomaly Dotty Rods Platelet Estimate Clumped Platelets Plt Clumps, EDTA Large Platelets Giant Platelets Platelet Satelliting Plt Morphology Comment RBC Morphology Dimorphic RBCs Polychromasia Hypochromasia Poikilocytosis Anisocytosis Microcytosis Macrocytosis Spherocytes Pappenheimer Bodies Sickle Cells Target Cells Tear Drop Cells Ovalocytes Helmet Cells Kaplan-Ardencroft Bodies [place] Rings [place] Cells Bite Cells Crenated Cell Elliptocytes Acanthocytes (Spur) Rouleaux Hemoglobin C Crystals Schistocytes Malaria parasites [place] Bodies Hem Pathologist Commnt Sodium Potassium Chloride Carbon Dioxide Anion Gap BUN Creatinine Estimated GFR BUN/Creatinine Ratio Glucose Calcium Total Bilirubin AST ALT Alkaline Phosphatase Total Protein Albumin Albumin/Globulin Ratio Lipase Urine Color Yellow Urine Turbidity Slightly-cloudy Urine pH 6.0 Ur Specific [place] 1.013 Urine Protein <15 mg/dl Urine Glucose (UA) Neg Urine Ketones Neg Urine Blood Neg Urine Nitrite Neg Urine Bilirubin Neg Urine Urobilinogen < 2.0 Ur Leukocyte Esterase Lg Urine WBC (Auto) 34.0 H Urine RBC (Auto) 7.0 U Epithel Cells (Auto) 4.0 Urine Bacteria (Auto) 1+ Urine Mucus Few Urine Yeast (Budding) 1+ Urine HCG, Qual Negative - Medical Decision Making Patient comfortable. Updated with results. Plan discharge with outpatient follow up. Return if any worsening. Critical care attestation.: If time is entered above; I have spent that time in minutes in the direct care of this critically ill patient, excluding procedure time. ED Disposition Clinical Impression: UTI (urinary tract infection) Qualifiers: Urinary tract infection type: site unspecified Hematuria presence: without hematuria Qualified Code(s): N39.0 - Urinary tract infection, site not specified Abdominal pain Qualifiers: Abdominal location: unspecified location Qualified Code(s): R10.9 - Unspecified abdominal pain Disposition: TO HOME OR SELFCARE Is pt being admited?: No Condition: Stable Instructions: Urinary Tract Infection in Women (ED), Abdominal Pain (ED) Prescriptions: Nitrofurantoin Waller/M-Cryst [Macrobid CAP] 100 mg PO Q12HR #14 capsule Referrals: REBECCA LOPEZ MD [Staff Physician] - 2-3 Days [facility] [Provider Group] - 2-3 Days Time of Disposition: 01:38
[2019-07-28] MEDS ORDERED: ONDANSETRON 4 MG/2 ML INJ IV ONE (01:47)
[2019-07-28] MEDS ORDERED: cefTRIAXone/NS 1 GM/50 ML 1 GM/50 ML BAG IV ONE (01:47)
[2019-07-28] MEDS ORDERED: KETOROLAC 30 MG/1 ML INJ IV ONE (01:48)
--- NOTE | 2019-07-28 03:12 | Cat Scan Report ---
CT ABDOMEN AND PELVIS WITH CONTRAST INDICATION / CLINICAL INFORMATION: Pain. TECHNIQUE: Axial CT images were obtained through the abdomen and pelvis after 100 cc Omnipaque 300 milligrams pe rcent IV contrast. All CT scans at this location are performed using CT dose reduction for ALARA by means of automated exposure control. COMPARISON: None available. FINDINGS: LOWER CHEST: No significant abnormality. Small hiatal hernia LIVER: No significant abnormality. GALLBLADDER: Mildly distended with several small calculi BILE DUCTS: Possible small calculus distal common bile duct. PANCREAS: No significant abnormality. SPLEEN: No significant abnormality. ADRENALS: No significant abnormality. RIGHT KIDNEY and URETER: No significant abnormality. LEFT KIDNEY and URETER: No significant abnormality. STOMACH and SMALL BOWEL: No significant abnormality. COLON: No significant abnormality. APPENDIX: No significant abnormality. PERITONEUM: No free fluid. No free air. No fluid collection. LYMPH NODES: No significant adenopathy. AORTA and ARTERIES: No significant abnormality. IVC and VEINS: No significant abnormality. URINARY BLADDER: No significant abnormality. REPRODUCTIVE ORGANS: No significant abnormality. Prominent uterus consistent with state ADDITIONAL FINDINGS: None. SKELETAL SYSTEM: No significant abnormality. IMPRESSION: 1. Cholelithiasis 2. Possible choledocholithiasis, recommend clinical correlation 3. Hiatal hernia 4. uterus Signer Name: Bi Dove MD Signed: 07/28/2019 3:08 AM Workstation Name: [id number]
[2019-07-28] MEDS ORDERED: ACETAMINOPHEN 325 MG TAB PO PRN (04:06)
[2019-07-28] MEDS ORDERED: METOCLOPRAMIDE 10 MG/2 ML INJ IV PRN (04:06)
[2019-07-28] MEDS ORDERED: ONDANSETRON 4 MG/2 ML INJ IV PRN (04:06)
[2019-07-28] MEDS ORDERED: KETOROLAC 30 MG/1 ML INJ IV PRN (04:11)
--- NOTE | 2019-07-28 04:54 | History and Physical Report ---
<FARHEEN AUGUSTINE - Last Filed: 07/28/19 05:43> History of Present Illness Date of examination: 07/28/19 Date of admission: 07/28/2019 Chief complaint: Abdominal pain History of present illness: 39-year-old female with history of ovarian cyst, chronic constipation, colitis, GERD and anemia who presents to [facility] ED with complaints of abdominal pain. Patient friend is present at bedside. Patient has requested that her friend interprets for her. Patient has been experiencing right upper quadrant pain for the past 1 to 2 days. The pain has progressively worsened over the course of the day and she rates her pain 8/10. The pain is constant and there are no aggravating factors. Admits to nausea. Denies emesis, fever, headache, melena, hematochezia or chest pain. Review of medical record shows patient was seen in the ED on 07/10 with complaints of urinary retention. Rodriguez was placed and she was discharged and given prescription for Diflucan. She was advised to follow- up with [facility]. Past History Past Medical History: anemia, GERD, other (Chronic constipation, colitis, ovarian cyst) Past Surgical History: No surgical history Social history: lives with family, full code Family history: CAD, diabetes Medications and Allergies Allergies Allergy/AdvReac Type Severity Reaction Status Date / Time No Known Allergies Allergy Verified 05/09/18 00:31 Home Medications Medication Instructions Recorded Confirmed Last Taken Type Vitamin 1 tab PO DAILY 07/05/19 07/28/19 1 Day Ago History ~07/04/19 1 Tablet Ferrous Sulfate [Feosol 325 MG tab] 325 mg PO BID 30 Days #60 tablet 07/08/19 07/28/19 Unknown Rx Active Meds: Active Medications Acetaminophen (Tylenol) 650 mg PO Q4H PRN PRN Reason: Pain MILD(1-3)/Fever >100.5/GARCIA Heparin Sodium (Porcine) (Heparin) 5,000 unit SUB-Q Q12HR LINA Sodium Chloride (Nacl 0.9% 1000 Ml) 1,000 mls @ 100 mls/hr IV DIRECT LINA Piperacillin Sod/Tazobactam Sod (Zosyn/Ns 3.375gm/50ml) 3.375 gm in 50 mls @ 100 mls/hr IV Q8HR LINA; Protocol Ketorolac Tromethamine (Toradol) 15 mg IV Q6H PRN PRN Reason: Pain, Mild (1-3) Stop: 07/31/19 04:10 Metoclopramide HCl (Reglan) 10 mg IV Q6H PRN PRN Reason: Nausea And Vomiting Ondansetron HCl (Zofran) 4 mg IV Q6H PRN PRN Reason: Nausea And Vomiting Pantoprazole Sodium (Protonix) 40 mg IV BID LINA Sodium Chloride (Sodium Chloride Flush Syringe 10 Ml) 10 ml IV BID LINA Sodium Chloride (Sodium Chloride Flush Syringe 10 Ml) 10 ml IV PRN PRN PRN Reason: LINE FLUSH Review of Systems All systems: negative Gastrointestinal: abdominal pain, nausea, constipation Exam - Physical Exam Narrative exam: Physical exam General appearance: Present: No acute distress, alert and oriented 3, well- developed, well-nourished, adult female - EENT Eyes: Present: PERRL, EOM intact ENT: hearing intact, normal dentition - Neck Neck: Present: supple, normal ROM - Respiratory Respiratory effort: Non-labored Respiratory: Clear throughout - Cardiovascular Heart rate: 80 (bpm) Rhythm: Sinus rhythm Heart Sounds: Present: S1 & S2. Absent: rub, click - Extremities Extremities: no ischemia, pulses intact, - Peripheral Assessment Peripheral Pulses: within normal limits - Abdominal General gastrointestinal: soft, tenderness, normal bowel sounds - Integumentary Integumentary: Present: warm, dry - Musculoskeletal Musculoskeletal: Able to move all extremities -Neurological Neurological: CN II-XII intact - Psychiatric Psychiatric: Appropriate for situation ,cooperative - Constitutional Vitals: Temp Pulse Resp BP Pulse Ox 98.0 F 74 16 118/56 98 07/27/19 23:43 07/28/19 04:06 07/28/19 04:06 07/28/19 04:06 07/28/19 04:06 Results - Labs CBC & Chem 7: 07/28/19 00:06 07/28/19 00:06 Labs: Laboratory Last Values WBC 7.0 K/mm3 (4.5-11.0) 07/28/19 00:06 RBC 3.93 M/mm3 (3.65-5.03) 07/28/19 00:06 Hgb 9.7 gm/dl (10.1-14.3) L 07/28/19 00:06 Hct 30.6 % (30.3-42.9) 07/28/19 00:06 MCV 78 fl (79-97) L 07/28/19 00:06 MCH 25 pg (28-32) L 07/28/19 00:06 MCHC 32 % (30-34) 07/28/19 00:06 RDW 18.3 % (13.2-15.2) H 07/28/19 00:06 Plt Count 456 K/mm3 (140-440) H 07/28/19 00:06 Baso % (Auto) Access Service Representative 07/28/19 00:06 Add Manual Diff Complete 07/28/19 00:06 Total Counted 100 07/28/19 00:06 Seg Neuts % (Manual) 44.0 % (40.0-70.0) 07/28/19 00:06 Band Neutrophils % 0 % 07/28/19 00:06 Lymphocytes % (Manual) 45.0 % (13.4-35.0) H 07/28/19 00:06 Reactive Lymphs % (Man) 0 % 07/28/19 00:06 Monocytes % (Manual) 6.0 % (0.0-7.3) 07/28/19 00:06 Eosinophils % (Manual) 4.0 % (0.0-4.3) 07/28/19 00:06 Basophils % (Manual) 1.0 % (0.0-1.8) 07/28/19 00:06 Metamyelocytes % 0 % 07/28/19 00:06 Myelocytes % 0 % 07/28/19 00:06 Promyelocytes % 0 % 07/28/19 00:06 Blast Cells % 0 % 07/28/19 00:06 Nucleated RBC % Not Reportable 07/28/19 00:06 Seg Neutrophils # Man 3.1 K/mm3 (1.8-7.7) 07/28/19 00:06 Band Neutrophils # 0.0 K/mm3 07/28/19 00:06 Lymphocytes # (Manual) 3.2 K/mm3 (1.2-5.4) 07/28/19 00:06 Abs React Lymphs (Man) 0.0 K/mm3 07/28/19 00:06 Monocytes # (Manual) 0.4 K/mm3 (0.0-0.8) 07/28/19 00:06 Eosinophils # (Manual) 0.3 K/mm3 (0.0-0.4) 07/28/19 00:06 Basophils # (Manual) 0.1 K/mm3 (0.0-0.1) 07/28/19 00:06 Metamyelocytes # 0.0 K/mm3 07/28/19 00:06 Myelocytes # 0.0 K/mm3 07/28/19 00:06 Promyelocytes # 0.0 K/mm3 07/28/19 00:06 Blast Cells # 0.0 K/mm3 07/28/19 00:06 WBC Morphology Not Reportable 07/28/19 00:06 Hypersegmented Neuts Not Reportable 07/28/19 00:06 Hyposegmented Neuts Not Reportable 07/28/19 00:06 Hypogranular Neuts Not Reportable 07/28/19 00:06 Smudge Cells Not Reportable 07/28/19 00:06 Toxic Granulation Not Reportable 07/28/19 00:06 Toxic Vacuolation Not Reportable 07/28/19 00:06 Dohle Bodies Not Reportable 07/28/19 00:06 Pelger-Huet Anomaly Not Reportable 07/28/19 00:06 Dotty Rods Not Reportable 07/28/19 00:06 Platelet Estimate Not Reportable 07/28/19 00:06 Clumped Platelets Not Reportable 07/28/19 00:06 Plt Clumps, EDTA Not Reportable 07/28/19 00:06 Large Platelets Not Reportable 07/28/19 00:06 Giant Platelets Not Reportable 07/28/19 00:06 Platelet Satelliting Not Reportable 07/28/19 00:06 Plt Morphology Comment Not Reportable 07/28/19 00:06 RBC Morphology Not Reportable 07/28/19 00:06 Dimorphic RBCs Not Reportable 07/28/19 00:06 Polychromasia Not Reportable 07/28/19 00:06 Hypochromasia 1+ 07/28/19 00:06 Poikilocytosis Not Reportable 07/28/19 00:06 Anisocytosis Not Reportable 07/28/19 00:06 Microcytosis Not Reportable 07/28/19 00:06 Macrocytosis Not Reportable 07/28/19 00:06 Spherocytes Not Reportable 07/28/19 00:06 Pappenheimer Bodies Not Reportable 07/28/19 00:06 Sickle Cells Not Reportable 07/28/19 00:06 Target Cells Not Reportable 07/28/19 00:06 Tear Drop Cells Not Reportable 07/28/19 00:06 Ovalocytes Not Reportable 07/28/19 00:06 Helmet Cells Not Reportable 07/28/19 00:06 Kaplan-Clutier Bodies Not Reportable 07/28/19 00:06 [place] Rings Not Reportable 07/28/19 00:06 [place] Cells Not Reportable 07/28/19 00:06 Bite Cells Not Reportable 07/28/19 00:06 Crenated Cell Not Reportable 07/28/19 00:06 Elliptocytes Not Reportable 07/28/19 00:06 Acanthocytes (Spur) Not Reportable 07/28/19 00:06 Rouleaux Not Reportable 07/28/19 00:06 Hemoglobin C Crystals Not Reportable 07/28/19 00:06 Schistocytes Not Reportable 07/28/19 00:06 Malaria parasites Not Reportable 07/28/19 00:06 [place] Bodies Not Reportable 07/28/19 00:06 Hem Pathologist Commnt No 07/28/19 00:06 Sodium 139 mmol/L (137-145) 07/28/19 00:06 Potassium 4.0 mmol/L (3.6-5.0) 07/28/19 00:06 Chloride 102.0 mmol/L (98-107) 07/28/19 00:06 Carbon Dioxide 24 mmol/L (22-30) 07/28/19 00:06 Anion Gap 17 mmol/L 07/28/19 00:06 BUN 16 mg/dL (7-17) 07/28/19 00:06 Creatinine 0.8 mg/dL (0.7-1.2) 07/28/19 00:06 Estimated GFR > 60 ml/min 07/28/19 00:06 BUN/Creatinine Ratio 20 % 07/28/19 00:06 Glucose 104 mg/dL (65-100) H 07/28/19 00:06 Calcium 9.3 mg/dL (8.4-10.2) 07/28/19 00:06 Total Bilirubin 0.20 mg/dL (0.1-1.2) 07/28/19 00:06 AST 26 units/L (5-40) 07/28/19 00:06 ALT 12 units/L (7-56) 07/28/19 00:06 Alkaline Phosphatase 107 units/L (35-129) 07/28/19 00:06 Total Protein 7.4 g/dL (6.3-8.2) 07/28/19 00:06 Albumin 4.0 g/dL (3.9-5) 07/28/19 00:06 Albumin/Globulin Ratio 1.2 % 07/28/19 00:06 Lipase 27 units/L (13-60) 07/28/19 00:06 Urine Color Yellow (Yellow) 07/28/19: Urine Turbidity Slightly-cloudy (Clear) 07/28/19: Urine pH 6.0 (5.0-7.0) 07/28/19 00: Ur Specific [place] 1.013 (1.003-1.030) 07/28/19: Urine Protein <15 mg/dl mg/dL (Negative) 07/28/19: Urine Glucose (UA) Neg mg/dL (Negative) 07/28/19 00: Urine Ketones Neg mg/dL (Negative) 07/28/19 00: Urine Blood Neg (Negative) 07/28/19: Urine Nitrite Neg (Negative) 07/28/19: Urine Bilirubin Neg (Negative) 07/28/19 00: Urine Urobilinogen < 2.0 mg/dL (<2.0) 07/28/19 00: Ur Leukocyte Esterase Lg (Negative) 07/28/19 00: Urine WBC (Auto) 34.0 /HPF (0.0-6.0) H 07/28/19 00: Urine RBC (Auto) 7.0 /HPF (0.0-6.0) 07/28/19: U Epithel Cells (Auto) 4.0 /HPF (0-13.0) 07/28/19: Urine Bacteria (Auto) 1+ /HPF (Negative) 07/28/19 00: Urine Mucus Few /HPF 07/28/19 00: Urine Yeast (Budding) 1+ /HPF 07/28/19 00: Urine HCG, Qual Negative (Negative) 07/28/19 00:29 - Imaging and Cardiology Imaging and Cardiology: CT Abdomen/Pelvis: Impressions: 1. Cholelithiasis 2. Possible choledochlithiasis, commended clinical correlation 3. Hiatal hernia 4. uterus Abdominal US Impressions: 1. Cholelithiasis Assessment and Plan Assessment and plan: 39-year-old female with history of ovarian cyst, chronic constipation, colitis, GERD and anemia who presents to [facility] ED with complaints of abdominal pain. Patient friend is present at bedside. Patient has requested that her friend interprets for her. Patient has been experiencing right upper quadrant pain for the past 1 to 2 days. The pain has progressively worsened over the course of the day and she rates her pain 8/10. The pain is constant and there are no aggravating factors. Admits to nausea. Denies emesis, fever, headache, melena, hematochezia or chest pain. Review of medical record shows patient was seen in the ED on 07/10 with complaints of urinary retention. Rodriguez was placed and she was discharged and given prescription for Diflucan. She was advised to follow- up with [facility]. Cholelithiasis -Seen on CT abdomen pelvis and abdominal US -CT abdomen pelvis concerning for possible choledocholithiasis -N.p.o. -On IV fluids -Continue supportive care -MRCP pending -GI consulted and following Urinary tract infection -UA positive for UTI -urine wbc 34 with large leukocytes -Urine culture pending -on IV Abx Acute abdominal pain -Secondary to cholelithiasis -Continue Supportive care Anemia -Hemoglobin on admission 9.7 -No s/s of active bleeding -Continue to monitor hemoglobin -Transfuse as needed DVT PPX -on Heparin Advance Directives: No VTE prophylaxis?: Chemical Plan of care discussed with patient/family: Yes <HENRY ARRIOLA - Last Filed: 07/28/19 07:13> History of Present Illness Date of admission: 07/28/19 04:06 Medications and Allergies Active Meds: Active Medications Acetaminophen (Tylenol) 650 mg PO Q4H PRN PRN Reason: Pain MILD(1-3)/Fever >100.5/GARCIA Heparin Sodium (Porcine) (Heparin) 5,000 unit SUB-Q Q12HR LINA Sodium Chloride (Nacl 0.9% 1000 Ml) 1,000 mls @ 100 mls/hr IV DIRECT LINA Piperacillin Sod/Tazobactam Sod (Zosyn/Ns 3.375gm/50ml) 3.375 gm in 50 mls @ 100 mls/hr IV Q8HR LINA; Protocol Ketorolac Tromethamine (Toradol) 15 mg IV Q6H PRN PRN Reason: Pain, Mild (1-3) Stop: 07/31/19 04:10 Metoclopramide HCl (Reglan) 10 mg IV Q6H PRN PRN Reason: Nausea And Vomiting Ondansetron HCl (Zofran) 4 mg IV Q6H PRN PRN Reason: Nausea And Vomiting Pantoprazole Sodium (Protonix) 40 mg IV BID LINA Sodium Chloride (Sodium Chloride Flush Syringe 10 Ml) 10 ml IV BID LINA Sodium Chloride (Sodium Chloride Flush Syringe 10 Ml) 10 ml IV PRN PRN PRN Reason: LINE FLUSH Exam - Constitutional Vitals: Temp Pulse Resp BP Pulse Ox 98.0 F 71 16 118/56 97 07/27/19 23:43 07/28/19 06:11 07/28/19 06:11 07/28/19 06:11 07/28/19 06:11 Results - Labs CBC & Chem 7: 07/28/19 00:06 07/28/19 00:06 Labs: Laboratory Last Values WBC 7.0 K/mm3 (4.5-11.0) 07/28/19 00:06 RBC 3.93 M/mm3 (3.65-5.03) 07/28/19 00:06 Hgb 9.7 gm/dl (10.1-14.3) L 07/28/19 00:06 Hct 30.6 % (30.3-42.9) 07/28/19 00:06 MCV 78 fl (79-97) L 07/28/19 00:06 MCH 25 pg (28-32) L 07/28/19 00:06 MCHC 32 % (30-34) 07/28/19 00:06 RDW 18.3 % (13.2-15.2) H 07/28/19 00:06 Plt Count 456 K/mm3 (140-440) H 07/28/19 00:06 Baso % (Auto) Access Service Representative 07/28/19 00:06 Add Manual Diff Complete 07/28/19 00:06 Total Counted 100 12/23/19 00:06 Seg Neuts % (Manual) 44.0 % (40.0-70.0) 07/28/19 00:06 Band Neutrophils % 0 % 07/28/19 00:06 Lymphocytes % (Manual) 45.0 % (13.4-35.0) H 07/28/19 00:06 Reactive Lymphs % (Man) 0 % 07/28/19 00:06 Monocytes % (Manual) 6.0 % (0.0-7.3) 07/28/19 00:06 Eosinophils % (Manual) 4.0 % (0.0-4.3) 07/28/19 00:06 Basophils % (Manual) 1.0 % (0.0-1.8) 07/28/19 00:06 Metamyelocytes % 0 % 07/28/19 00:06 Myelocytes % 0 % 07/28/19 00:06 Promyelocytes % 0 % 07/28/19 00:06 Blast Cells % 0 % 07/28/19 00:06 Nucleated RBC % Not Reportable 07/28/19 00:06 Seg Neutrophils # Man 3.1 K/mm3 (1.8-7.7) 07/28/19 00:06 Band Neutrophils # 0.0 K/mm3 07/28/19 00:06 Lymphocytes # (Manual) 3.2 K/mm3 (1.2-5.4) 07/28/19 00:06 Abs React Lymphs (Man) 0.0 K/mm3 07/28/19 00:06 Monocytes # (Manual) 0.4 K/mm3 (0.0-0.8) 07/28/19 00:06 Eosinophils # (Manual) 0.3 K/mm3 (0.0-0.4) 07/28/19 00:06 Basophils # (Manual) 0.1 K/mm3 (0.0-0.1) 07/28/19 00:06 Metamyelocytes # 0.0 K/mm3 07/28/19 00:06 Myelocytes # 0.0 K/mm3 07/28/19 00:06 Promyelocytes # 0.0 K/mm3 07/28/19 00:06 Blast Cells # 0.0 K/mm3 07/28/19 00:06 WBC Morphology Not Reportable 07/28/19 00:06 Hypersegmented Neuts Not Reportable 07/28/19 00:06 Hyposegmented Neuts Not Reportable 07/28/19 00:06 Hypogranular Neuts Not Reportable 07/28/19 00:06 Smudge Cells Not Reportable 07/28/19 00:06 Toxic Granulation Not Reportable 07/28/19 00:06 Toxic Vacuolation Not Reportable 07/28/19 00:06 Dohle Bodies Not Reportable 07/28/19 00:06 Pelger-Huet Anomaly Not Reportable 07/28/19 00:06 Dotty Rods Not Reportable 07/28/19 00:06 Platelet Estimate Not Reportable 07/28/19 00:06 Clumped Platelets Not Reportable 07/28/19 00:06 Plt Clumps, EDTA Not Reportable 07/28/19 00:06 Large Platelets Not Reportable 07/28/19 00:06 Giant Platelets Not Reportable 07/28/19 00:06 Platelet Satelliting Not Reportable 07/28/19 00:06 Plt Morphology Comment Not Reportable 07/28/19 00:06 RBC Morphology Not Reportable 07/28/19 00:06 Dimorphic RBCs Not Reportable 07/28/19 00:06 Polychromasia Not Reportable 07/28/19 00:06 Hypochromasia 1+ 07/28/19 00:06 Poikilocytosis Not Reportable 07/28/19 00:06 Anisocytosis Not Reportable 07/28/19 00:06 Microcytosis Not Reportable 07/28/19 00:06 Macrocytosis Not Reportable 07/28/19 00:06 Spherocytes Not Reportable 07/28/19 00:06 Pappenheimer Bodies Not Reportable 07/28/19 00:06 Sickle Cells Not Reportable 07/28/19 00:06 Target Cells Not Reportable 07/28/19 00:06 Tear Drop Cells Not Reportable 07/28/19 00:06 Ovalocytes Not Reportable 07/28/19 00:06 Helmet Cells Not Reportable 07/28/19 00:06 Kaplan-Clutier Bodies Not Reportable 07/28/19 00:06 [place] Rings Not Reportable 07/28/19 00:06 [place] Cells Not Reportable 07/28/19 00:06 Bite Cells Not Reportable 07/28/19 00:06 Crenated Cell Not Reportable 07/28/19 00:06 Elliptocytes Not Reportable 07/28/19 00:06 Acanthocytes (Spur) Not Reportable 07/28/19 00:06 Rouleaux Not Reportable 07/28/19 00:06 Hemoglobin C Crystals Not Reportable 07/28/19 00:06 Schistocytes Not Reportable 07/28/19 00:06 Malaria parasites Not Reportable 07/28/19 00:06 [place] Bodies Not Reportable 07/28/19 00:06 Hem Pathologist Commnt No 07/28/19 00:06 Sodium 139 mmol/L (137-145) 07/28/19 00:06 Potassium 4.0 mmol/L (3.6-5.0) 07/28/19 00:06 Chloride 102.0 mmol/L (98-107) 07/28/19 00:06 Carbon Dioxide 24 mmol/L (22-30) 07/28/19 00:06 Anion Gap 17 mmol/L 07/28/19 00:06 BUN 16 mg/dL (7-17) 07/28/19 00:06 Creatinine 0.8 mg/dL (0.7-1.2) 07/28/19 00:06 Estimated GFR > 60 ml/min 07/28/19 00:06 BUN/Creatinine Ratio 20 % 07/28/19 00:06 Glucose 104 mg/dL (65-100) H 07/28/19 00:06 Calcium 9.3 mg/dL (8.4-10.2) 07/28/19 00:06 Total Bilirubin 0.20 mg/dL (0.1-1.2) 07/28/19 00:06 AST 26 units/L (5-40) 07/28/19 00:06 ALT 12 units/L (7-56) 07/28/19 00:06 Alkaline Phosphatase 107 units/L (35-129) 07/28/19 00:06 Total Protein 7.4 g/dL (6.3-8.2) 07/28/19 00:06 Albumin 4.0 g/dL (3.9-5) 07/28/19 00:06 Albumin/Globulin Ratio 1.2 % 07/28/19 00:06 Lipase 27 units/L (13-60) 07/28/19 00:06 Urine Color Yellow (Yellow) 07/28/19: Urine Turbidity Slightly-cloudy (Clear) 07/28/19: Urine pH 6.0 (5.0-7.0) 07/28/19: Ur Specific [place] 1.013 (1.003-1.030) 07/28/19: Urine Protein <15 mg/dl mg/dL (Negative) 07/28/19: Urine Glucose (UA) Neg mg/dL (Negative) 07/28/19: Urine Ketones Neg mg/dL (Negative) 07/28/19: Urine Blood Neg (Negative) 07/28/19: Urine Nitrite Neg (Negative) 07/28/19 Urine Bilirubin Neg (Negative) 07/28/19: Urine Urobilinogen < 2.0 mg/dL (<2.0) 07/28/19: Ur Leukocyte Esterase Lg (Negative) 07/28/19: Urine WBC (Auto) 34.0 /HPF (0.0-6.0) H 07/28/19: Urine RBC (Auto) 7.0 /HPF (0.0-6.0) 07/28/19: U Epithel Cells (Auto) 4.0 /HPF (0-13.0) 07/28/19: Urine Bacteria (Auto) 1+ /HPF (Negative) 07/28/19 00: Urine Mucus Few /HPF 07/28/19: Urine Yeast (Budding) 1+ /HPF 07/28/19: Urine HCG, Qual Negative (Negative) 07/28/19 00: Assessment and Plan Assessment and plan: Patient seen and examined, agree with plan as stated above
--- NOTE | 2019-07-28 05:20 | Ultrasound Report ---
ULTRASOUND ABDOMEN, LIMITED (RIGHT UPPER QUADRANT) INDICATION: RUQ Pain rule out gallstones. COMPARISON: None available. FINDINGS: Pancreas: Visualized portion shows no significant abnormality. Liver: Normal. Gallbladder: Echogenic material within the gallbladder is present with acoustic shadowing consistent with cholelithiasis and sludge Bile ducts: Normal. Common Bile Duct measures 1 mm. Free fluid: None. Additional Findings: None. IMPRESSION: 1. Cholelithiasis Signer Name: Bi Dove MD Signed: 07/28/2019 5:16 AM Workstation Name: [id number]
[2019-07-28] MEDS: PIPERACILLIN/TAZOBACTAM 3.375 3.375 GM/50 ML BAG IV SCH ×3 (08:17→21:14)
[2019-07-28] MEDS: SODIUM CHLORIDE 0.9% 1000 ML 1,000 ML IV SCH ×2 (08:18→21:22)
[2019-07-28] MEDS: PANTOPRAZOLE 40 MG INJ IV SCH ×2 (09:15→21:13)
[2019-07-28] MEDS: HEPARIN 5,000 UNIT/1 ML VIAL SUB-Q SCH ×2 (09:18→21:32)
--- NOTE | 2019-07-28 13:56 | Magnetic Resonance Report ---
MR ABDOMEN MRCP HISTORY: Abdominal pain TECHNIQUE: Multisequence, multiplanar MRI without contrast. Thin slab MRCP images. Radial MRCP images . COMPARISON: CT abdomen pelvis with contrast dated 07/28/2009. Ultrasound right upper quadrant dated 09/28/2018. FINDINGS: Cholelithiasis is again noted in the gallbladder fundus and neck of the gallbladder. The gallbladder appears borderline distended but no wall thickening or surrounding fluid is identified. The thin slab MRCP images are severely limited by breathing motion artifact. The common bile duct is poorly demons trated but appears to be normal caliber. No obstructing choledocholithiasis is identified. The pancreas is mildly edematous with mild surrounding fluid on MR consistent with acute pancreatitis . No mass or pseudocyst is identified. Signal characteristics of the liver, pancreas, kidneys, adrenal glands, aorta and visualized bowel lo ops are within normal limits. IMPRESSION: Findings suggestive of acute pancreatitis. Cholelithiasis. No convincing findings of choledocholithiasis although the MRCP images are markedly l imited. Signer Name: Santy Altamirano Jr, MD Signed: 07/28/2019 1:52 PM Workstation Name: [id number]
--- NOTE | 2019-07-28 15:36 | Gastroenterology Consultation ---
<YURIDIA SOTELO - Last Filed: 07/28/19 15:37> History of Present Illness - Reason for Consult Consult date: 07/28/19 abdominal pain Requesting physician: HENRY ARRIOLA - History of Present Illness Ms Karina Rg is a 39-year-old female with history of ovarian cyst, chronic constipation, colitis, GERD and anemia who presents to [facility] ED with complaints of abdominal pain. Friend at bedside translates. She had similar pain 1 week ago that resolved, and then again last night. He pain is in the Mid epigastric area and is associated with PO intake. Admits to nausea. Denies fever, headache, melena, hematochezia or chest pain. The patient was recently seen in the ED on 07/10 with complaints of urinary retention. Rodriguez was placed and she was discharged to follow up with OBGYN. She is s/p vaginal delivery on 07/06/19. She has been seen by [facility] in [place] ( chart unavailable to me) and underwent colonoscopy in 12/2018 and was to follow up with EGD but wanted to wait until after she delivered. Past History Past Medical History: anemia, GERD, other (Chronic constipation, colitis, ovari an cyst) Past Surgical History: No surgical history Social history: lives with family, full code Family history: CAD, diabetes Medications and Allergies Allergies Allergy/AdvReac Type Severity Reaction Status Date / Time No Known Allergies Allergy Verified 05/09/18 00:31 Home Medications Medication Instructions Recorded Confirmed Last Taken Type Vitamin 1 tab PO DAILY 07/05/19 07/28/19 07/27/19 History Ferrous Sulfate [Feosol 325 MG tab] 325 mg PO BID 30 Days #60 tablet 07/08/19 07/28/19 07/27/19 Rx Docusate Sodium [Colace] 100 mg PO BID PRN 07/28/19 07/28/19 07/27/19 History Active Meds: Active Medications Acetaminophen (Tylenol) 650 mg PO Q4H PRN PRN Reason: Pain MILD(1-3)/Fever >100.5/GARCIA Heparin Sodium (Porcine) (Heparin) 5,000 unit SUB-Q Q12HR LINA Last Admin: 07/28/19 09:18 Dose: 5,000 unit Documented by: Sodium Chloride (Nacl 0.9% 1000 Ml) 1,000 mls @ 100 mls/hr IV DIRECT LINA Last Admin: 07/28/19 08:18 Dose: 100 mls/hr Documented by: Piperacillin Sod/Tazobactam Sod (Zosyn/Ns 3.375gm/50ml) 3.375 gm in 50 mls @ 100 mls/hr IV Q8HR [facility]; Protocol Last Admin: 07/28/19 14:36 Dose: 100 mls/hr Documented by: Ketorolac Tromethamine (Toradol) 15 mg IV Q6H PRN PRN Reason: Pain, Mild (1-3) Stop: 07/31/19 04:10 Metoclopramide HCl (Reglan) 10 mg IV Q6H PRN PRN Reason: Nausea And Vomiting Ondansetron HCl (Zofran) 4 mg IV Q6H PRN PRN Reason: Nausea And Vomiting Pantoprazole Sodium (Protonix) 40 mg IV BID [facility] Last Admin: 07/28/19 09:15 Dose: 40 mg Documented by: Sodium Chloride (Sodium Chloride Flush Syringe 10 Ml) 10 ml IV BID [facility] Last Admin: 07/28/19 09:17 Dose: 10 ml Documented by: Sodium Chloride (Sodium Chloride Flush Syringe 10 Ml) 10 ml IV PRN PRN PRN Reason: LINE FLUSH Review of Systems - Review of Systems All systems: negative Constitutional: weakness Gastrointestinal: abdominal pain, nausea Exam - Constitutional Vital Signs: Temp Pulse Resp BP Pulse Ox 99.1 F 103 H 19 97/59 97 07/28/19 12:26 07/28/19 12:26 07/28/19 12:26 07/28/19 12:26 07/28/19 12:26 General appearance: no acute distress - EENT Eyes: EOM intact ENT: hearing intact - Neck Neck: supple - Respiratory Respiratory: bilateral: CTA - Cardiovascular Rhythm: regular Heart Sounds: Present: S1 & S2 - Gastrointestinal General gastrointestinal: Present: soft, tender (TTP epigastric area), normal bowel sounds Rectal Exam: deferred - Integumentary Integumentary: Present: warm, dry - Neurologic Neurological: alert and oriented x3 - Psychiatric Psychiatric: appropriate mood/affect, cooperative - Labs CBC & Chem 7: 07/28/19 00:06 07/28/19 00:06 Lab Results: Laboratory Results - last 24 hr 07/28/19 07/28/19 07/28/19 00:06 00:06 00:06 WBC 7.0 RBC 3.93 Hgb 9.7 L Hct 30.6 MCV 78 L MCH 25 L MCHC 32 RDW 18.3 H Plt Count 456 H Baso % (Auto) Mushroom Press Operator Add Manual Diff Complete Total Counted 100 Seg Neuts % (Manual) 44.0 Band Neutrophils % 0 Lymphocytes % (Manual) 45.0 H Reactive Lymphs % (Man) 0 Monocytes % (Manual) 6.0 Eosinophils % (Manual) 4.0 Basophils % (Manual) 1.0 Metamyelocytes % 0 Myelocytes % 0 Promyelocytes % 0 Blast Cells % 0 Nucleated RBC % Not Reportable Seg Neutrophils # Man 3.1 Band Neutrophils # 0.0 Lymphocytes # (Manual) 3.2 Abs React Lymphs (Man) 0.0 Monocytes # (Manual) 0.4 Eosinophils # (Manual) 0.3 Basophils # (Manual) 0.1 Metamyelocytes # 0.0 Myelocytes # 0.0 Promyelocytes # 0.0 Blast Cells # 0.0 WBC Morphology Not Reportable Hypersegmented Neuts Not Reportable Hyposegmented Neuts Not Reportable Hypogranular Neuts Not Reportable Smudge Cells Not Reportable Toxic Granulation Not Reportable Toxic Vacuolation Not Reportable Dohle Bodies Not Reportable Pelger-Huet Anomaly Not Reportable Dotty Rods Not Reportable Platelet Estimate Not Reportable Clumped Platelets Not Reportable Plt Clumps, EDTA Not Reportable Large Platelets Not Reportable Giant Platelets Not Reportable Platelet Satelliting Not Reportable Plt Morphology Comment Not Reportable RBC Morphology Not Reportable Dimorphic RBCs Not Reportable Polychromasia Not Reportable Hypochromasia 1+ Poikilocytosis Not Reportable Anisocytosis Not Reportable Microcytosis Not Reportable Macrocytosis Not Reportable Spherocytes Not Reportable Pappenheimer Bodies Not Reportable Sickle Cells Not Reportable Target Cells Not Reportable Tear Drop Cells Not Reportable Ovalocytes Not Reportable Helmet Cells Not Reportable Kaplan-[place] Bodies Not Reportable Enterprise Rings Not Reportable Carmen Cells Not Reportable Bite Cells Not Reportable Crenated Cell Not Reportable Elliptocytes Not Reportable Acanthocytes (Spur) Not Reportable Rouleaux Not Reportable Hemoglobin C Crystals Not Reportable Schistocytes Not Reportable Malaria parasites Not Reportable [place] Bodies Not Reportable Hem Pathologist Commnt No Sodium 139 Potassium 4.0 Chloride 102.0 Carbon Dioxide 24 Anion Gap 17 BUN 16 Creatinine 0.8 Estimated GFR > 60 BUN/Creatinine Ratio 20 Glucose 104 H Calcium 9.3 Total Bilirubin 0.20 AST 26 ALT 12 Alkaline Phosphatase 107 Total Protein 7.4 Albumin 4.0 Albumin/Globulin Ratio 1.2 Lipase 27 Urine Color Urine Turbidity Urine pH Ur Specific [place] Urine Protein Urine Glucose (UA) Urine Ketones Urine Blood Urine Nitrite Urine Bilirubin Urine Urobilinogen Ur Leukocyte Esterase Urine WBC (Auto) Urine RBC (Auto) U Epithel Cells (Auto) Urine Bacteria (Auto) Urine Mucus Urine Yeast (Budding) Urine HCG, Qual 07/28/19 00:29 WBC RBC Hgb Hct MCV MCH MCHC RDW Plt Count Baso % (Auto) Add Manual Diff Total Counted Seg Neuts % (Manual) Band Neutrophils % Lymphocytes % (Manual) Reactive Lymphs % (Man) Monocytes % (Manual) Eosinophils % (Manual) Basophils % (Manual) Metamyelocytes % Myelocytes % Promyelocytes % Blast Cells % Nucleated RBC % Seg Neutrophils # Man Band Neutrophils # Lymphocytes # (Manual) Abs React Lymphs (Man) Monocytes # (Manual) Eosinophils # (Manual) Basophils # (Manual) Metamyelocytes # Myelocytes # Promyelocytes # Blast Cells # WBC Morphology Hypersegmented Neuts Hyposegmented Neuts Hypogranular Neuts Smudge Cells Toxic Granulation Toxic Vacuolation Dohle Bodies Pelger-Huet Anomaly Dotty Rods Platelet Estimate Clumped Platelets Plt Clumps, EDTA Large Platelets Giant Platelets Platelet Satelliting Plt Morphology Comment RBC Morphology Dimorphic RBCs Polychromasia Hypochromasia Poikilocytosis Anisocytosis Microcytosis Macrocytosis Spherocytes Pappenheimer Bodies Sickle Cells Target Cells Tear Drop Cells Ovalocytes Helmet Cells Kaplan-[place] Bodies Enterprise Rings Soledad Cells Bite Cells Crenated Cell Elliptocytes Acanthocytes (Spur) Rouleaux Hemoglobin C Crystals Schistocytes Malaria parasites [place] Bodies Hem Pathologist Commnt Sodium Potassium Chloride Carbon Dioxide Anion Gap BUN Creatinine Estimated GFR BUN/Creatinine Ratio Glucose Calcium Total Bilirubin AST ALT Alkaline Phosphatase Total Protein Albumin Albumin/Globulin Ratio Lipase Urine Color Yellow Urine Turbidity Slightly-cloudy Urine pH 6.0 Ur Specific [place] 1.013 Urine Protein <15 mg/dl Urine Glucose (UA) Neg Urine Ketones Neg Urine Blood Neg Urine Nitrite Neg Urine Bilirubin Neg Urine Urobilinogen < 2.0 Ur Leukocyte Esterase Lg Urine WBC (Auto) 34.0 H Urine RBC (Auto) 7.0 U Epithel Cells (Auto) 4.0 Urine Bacteria (Auto) 1+ Urine Mucus Few Urine Yeast (Budding) 1+ Urine HCG, Qual Negative Assessment and Plan 1. Abdominal Pain/ Nausea 2. Recent urinary retention 3. S/P vaginal delivery 07/2019 4. Cholelithiasis - WBC WNL - LFTS WNL - CT with questionable choledocholelithiasis, US with gallstones and normal CBD 1mm - MRCP with suboptimal results, however no definitive stones within CBD. MRCP did reveal likely pancreatitis, not seen on CT scan ? - Lipase Normal - Differentials would include symptomatic cholelithiasis, pancreatitis vs PUD. - No hx of ETOH use. - Surgical consult at some point for recommendations on CCY - pt is s/p vaginal delivery 07/2019 - Trial of clear liquids - Repeat Lipase IN AM, Repeat CMP in AM - IVF and supportive care - Further recommendations to follow. <SOSA CRUZ - Last Filed: 07/28/19 19:40> History of Present Illness - History of Present Illness Unable to find patient in our medical record system, suspect that she may have seen a different group Currently she reports her abdominal pain is starting to improve Medications and Allergies Active Meds: Active Medications Acetaminophen (Tylenol) 650 mg PO Q4H PRN PRN Reason: Pain MILD(1-3)/Fever >100.5/GARCIA Heparin Sodium (Porcine) (Heparin) 5,000 unit SUB-Q Q12HR [facility] Last Admin: 07/28/19 09:18 Dose: 5,000 unit Documented by: Sodium Chloride (Nacl 0.9% 1000 Ml) 1,000 mls @ 100 mls/hr IV DIRECT [facility] Last Admin: 07/28/19 08:18 Dose: 100 mls/hr Documented by: Piperacillin Sod/Tazobactam Sod (Zosyn/Ns 3.375gm/50ml) 3.375 gm in 50 mls @ 100 mls/hr IV Q8HR [facility]; Protocol Last Admin: 07/28/19 14:36 Dose: 100 mls/hr Documented by: Ketorolac Tromethamine (Toradol) 15 mg IV Q6H PRN PRN Reason: Pain, Mild (1-3) Stop: 07/31/19 04:10 Metoclopramide HCl (Reglan) 10 mg IV Q6H PRN PRN Reason: Nausea And Vomiting Ondansetron HCl (Zofran) 4 mg IV Q6H PRN PRN Reason: Nausea And Vomiting Pantoprazole Sodium (Protonix) 40 mg IV BID [facility] Last Admin: 07/28/19 09:15 Dose: 40 mg Documented by: Polyethylene Glycol (Miralax [id number]) 17 gm PO BID [facility] Sodium Chloride (Sodium Chloride Flush Syringe 10 Ml) 10 ml IV BID [facility] Last Admin: 07/28/19 09:17 Dose: 10 ml Documented by: Sodium Chloride (Sodium Chloride Flush Syringe 10 Ml) 10 ml IV PRN PRN PRN Reason: LINE FLUSH Exam - Constitutional Vital Signs: Temp Pulse Resp BP Pulse Ox 98.1 F 75 19 108/63 97 07/28/19 16:23 07/28/19 16:23 07/28/19 16:23 07/28/19 16:23 07/28/19 16:23 - Labs CBC & Chem 7: 07/28/19 00:06 07/28/19 00:06 Lab Results: Laboratory Results - last 24 hr 07/28/19 07/28/19 07/28/19 00:06 00:06 00:06 WBC 7.0 RBC 3.93 Hgb 9.7 L Hct 30.6 MCV 78 L MCH 25 L MCHC 32 RDW 18.3 H Plt Count 456 H Baso % (Auto) Mushroom Press Operator Add Manual Diff Complete Total Counted 100 Seg Neuts % (Manual) 44.0 Band Neutrophils % 0 Lymphocytes % (Manual) 45.0 H Reactive Lymphs % (Man) 0 Monocytes % (Manual) 6.0 Eosinophils % (Manual) 4.0 Basophils % (Manual) 1.0 Metamyelocytes % 0 Myelocytes % 0 Promyelocytes % 0 Blast Cells % 0 Nucleated RBC % Not Reportable Seg Neutrophils # Man 3.1 Band Neutrophils # 0.0 Lymphocytes # (Manual) 3.2 Abs React Lymphs (Man) 0.0 Monocytes # (Manual) 0.4 Eosinophils # (Manual) 0.3 Basophils # (Manual) 0.1 Metamyelocytes # 0.0 Myelocytes # 0.0 Promyelocytes # 0.0 Blast Cells # 0.0 WBC Morphology Not Reportable Hypersegmented Neuts Not Reportable Hyposegmented Neuts Not Reportable Hypogranular Neuts Not Reportable Smudge Cells Not Reportable Toxic Granulation Not Reportable Toxic Vacuolation Not Reportable Dohle Bodies Not Reportable Pelger-Huet Anomaly Not Reportable Dotty Rods Not Reportable Platelet Estimate Not Reportable Clumped Platelets Not Reportable Plt Clumps, EDTA Not Reportable Large Platelets Not Reportable Giant Platelets Not Reportable Platelet Satelliting Not Reportable Plt Morphology Comment Not Reportable RBC Morphology Not Reportable Dimorphic RBCs Not Reportable Polychromasia Not Reportable Hypochromasia 1+ Poikilocytosis Not Reportable Anisocytosis Not Reportable Microcytosis Not Reportable Macrocytosis Not Reportable Spherocytes Not Reportable Pappenheimer Bodies Not Reportable Sickle Cells Not Reportable Target Cells Not Reportable Tear Drop Cells Not Reportable Ovalocytes Not Reportable Helmet Cells Not Reportable Kaplan-[place] Bodies Not Reportable Enterprise Rings Not Reportable [place]edad Cells Not Reportable Bite Cells Not Reportable Crenated Cell Not Reportable Elliptocytes Not Reportable Acanthocytes (Spur) Not Reportable Rouleaux Not Reportable Hemoglobin C Crystals Not Reportable Schistocytes Not Reportable Malaria parasites Not Reportable [place] Bodies Not Reportable Hem Pathologist Commnt No Sodium 139 Potassium 4.0 Chloride 102.0 Carbon Dioxide 24 Anion Gap 17 BUN 16 Creatinine 0.8 Estimated GFR > 60 BUN/Creatinine Ratio 20 Glucose 104 H Calcium 9.3 Total Bilirubin 0.20 AST 26 ALT 12 Alkaline Phosphatase 107 Total Protein 7.4 Albumin 4.0 Albumin/Globulin Ratio 1.2 Lipase 27 Urine Color Urine Turbidity Urine pH Ur Specific [place] Urine Protein Urine Glucose (UA) Urine Ketones Urine Blood Urine Nitrite Urine Bilirubin Urine Urobilinogen Ur Leukocyte Esterase Urine WBC (Auto) Urine RBC (Auto) U Epithel Cells (Auto) Urine Bacteria (Auto) Urine Mucus Urine Yeast (Budding) Urine HCG, Qual 07/28/19 00:29 WBC RBC Hgb Hct MCV MCH MCHC RDW Plt Count Baso % (Auto) Add Manual Diff Total Counted Seg Neuts % (Manual) Band Neutrophils % Lymphocytes % (Manual) Reactive Lymphs % (Man) Monocytes % (Manual) Eosinophils % (Manual) Basophils % (Manual) Metamyelocytes % Myelocytes % Promyelocytes % Blast Cells % Nucleated RBC % Seg Neutrophils # Man Band Neutrophils # Lymphocytes # (Manual) Abs React Lymphs (Man) Monocytes # (Manual) Eosinophils # (Manual) Basophils # (Manual) Metamyelocytes # Myelocytes # Promyelocytes # Blast Cells # WBC Morphology Hypersegmented Neuts Hyposegmented Neuts Hypogranular Neuts Smudge Cells Toxic Granulation Toxic Vacuolation Dohle Bodies Pelger-Huet Anomaly Dotty Rods Platelet Estimate Clumped Platelets Plt Clumps, EDTA Large Platelets Giant Platelets Platelet Satelliting Plt Morphology Comment RBC Morphology Dimorphic RBCs Polychromasia Hypochromasia Poikilocytosis Anisocytosis Microcytosis Macrocytosis Spherocytes Pappenheimer Bodies Sickle Cells Target Cells Tear Drop Cells Ovalocytes Helmet Cells Kaplan-[place] Bodies Enterprise Rings Carmen Cells Bite Cells Crenated Cell Elliptocytes Acanthocytes (Spur) Rouleaux Hemoglobin C Crystals Schistocytes Malaria parasites [place] Bodies Hem Pathologist Commnt Sodium Potassium Chloride Carbon Dioxide Anion Gap BUN Creatinine Estimated GFR BUN/Creatinine Ratio Glucose Calcium Total Bilirubin AST ALT Alkaline Phosphatase Total Protein Albumin Albumin/Globulin Ratio Lipase Urine Color Yellow Urine Turbidity Slightly-cloudy Urine pH 6.0 Ur Specific [place] 1.013 Urine Protein <15 mg/dl Urine Glucose (UA) Neg Urine Ketones Neg Urine Blood Neg Urine Nitrite Neg Urine Bilirubin Neg Urine Urobilinogen < 2.0 Ur Leukocyte Esterase Lg Urine WBC (Auto) 34.0 H Urine RBC (Auto) 7.0 U Epithel Cells (Auto) 4.0 Urine Bacteria (Auto) 1+ Urine Mucus Few Urine Yeast (Budding) 1+ Urine HCG, Qual Negative Assessment and Plan Patient seen and examined. I have reviewed the advanced practitioner's evaluation, assessment, and plan, and agree with them. I note the following additions: She is tender to palpation left upper quadrant however she feels that she could tolerate more than a clear liquid diet and reports that overall her symptoms have been improving throughout the course of the day. Therefore recommend advancing diet as tolerated starting tomorrow and if she continues to do well she can be discharged home with outpatient follow-up Regarding her significant constipation, I ordered MiraLAX which is especially important given her recent vaginal tear with her recent vaginal delivery 3 weeks ago - Patient Problems (1) Nausea & vomiting Current Visit: Yes Status: Acute (2) Abdominal pain Current Visit: Yes Status: Acute Qualifiers: Abdominal location: unspecified location Qualified Code(s): R10.9 - Unspecified abdominal pain (3) Choledocholithiasis Current Visit: Yes Status: Acute
--- NOTE | 2019-07-28 20:24 | Event Note ---
Date: 07/28/19 Pt seen and examined. Will continue with present management. MRI was remarkable for acute pancreatitis. We'll obtain lipase level and continue with present management.
[2019-07-28] MEDS ORDERED: DOCUSATE SODIUM 100 MG CAP PO PRN (20:29)
[2019-07-28] MEDS ORDERED: NON-FORMULARY EACH (Prenatal Vitamin 1 TAB) PO SCH (20:30)
[2019-07-28] MEDS: POLYETHYLENE GLYCOL 3350 17 GM POWDER PO SCH (21:14)
[2019-07-28] MEDS: FERROUS SULFATE 325 MG TAB PO SCH (21:25)
[2019-07-28] MEDS: PRENATAL VIT27-FE FUMARATE-FOLIC ACID VIT TAB PO SCH (22:15)
[2019-07-29] MEDS: PIPERACILLIN/TAZOBACTAM 3.375 3.375 GM/50 ML BAG IV SCH ×2 (06:11→13:38)
--- NOTE | 2019-07-29 07:58 | Gastroenterology Progress Note ---
Assessment and Plan She is feeling better, abd exam benign, as long as she tolerates breakfast may be discharged home today Suspect acute self limited infection as source of symptoms, gallstone related less likely Given clinical picture and normal lipase she does not meet clinical criteria for pancreatitis and therefore does not appear to have had pancreatitis - Patient Problems (1) Nausea & vomiting Current Visit: Yes Status: Acute (2) Abdominal pain Current Visit: Yes Status: Acute Qualifiers: Abdominal location: unspecified location Qualified Code(s): R10.9 - Unspecified abdominal pain (3) Choledocholithiasis Current Visit: Yes Status: Acute Subjective Date of service: 07/29/19 Principal diagnosis: abd pain N/V Interval history: Patient reports feeling better today Objective - Constitutional Vitals: Temp Pulse Resp BP Pulse Ox 98.9 F 73 14 109/67 98 07/29/19 05:52 07/29/19 07:48 07/29/19 05:52 07/29/19 07:48 07/29/19 05:52 General appearance: no acute distress - EENT ENT: hearing intact - Respiratory Respiratory effort: normal - Gastrointestinal General gastrointestinal: Present: soft, non-tender - Labs CBC & Chem 7: 07/28/19 00:06 07/28/19 00:06 Labs: Laboratory Results - last 24 hr 07/28/19 21:17 Hemoglobin A1c 5.1
[2019-07-29 08:36] LABS: Basophils % (Auto) 0.5 % (0.0-1.8); Eosinophils # (Auto) 0.2 K/mm3 (0.0-0.4); Eosinophils % (Auto) 2.8 % (0.0-4.3); Hemoglobin 9.2 gm/dl (10.1-14.3); Lymphocytes # (Auto) 1.1 K/mm3 (1.2-5.4); Lymphocytes % (Auto) 13.6 % (13.4-35.0); Monocytes # (Auto) 0.6 K/mm3 (0.0-0.8)
[2019-07-29 08:54] LABS: Hematocrit 30.2 % (30.3-42.9); Mean Corpuscular HGB Conc 31 % (30-34); Mean Corpuscular Volume 78 fl (79-97); Platelet Count 385 K/mm3 (140-440); Red Blood Count 3.86 M/mm3 (3.65-5.03); Red Cell Distribution Width 19.5 % (13.2-15.2)
[2019-07-29 09:06] LABS: Alanine Aminotransferase 144 units/L (7-56); Albumin 3.4 g/dL (3.9-5); BUN/Creatinine Ratio 10; Blood Urea Nitrogen 7 mg/dL (7-17); Calcium 8.4 mg/dL (8.4-10.2); Hemolysis Index 0
[2019-07-29] MEDS: PANTOPRAZOLE 40 MG INJ IV SCH (10:00)
[2019-07-29] MEDS: POLYETHYLENE GLYCOL 3350 17 GM POWDER PO SCH (10:00)
[2019-07-29] MEDS: FERROUS SULFATE 325 MG TAB PO SCH (10:00)
[2019-07-29] MEDS: HEPARIN 5,000 UNIT/1 ML VIAL SUB-Q SCH (10:01)
--- NOTE | 2019-07-29 10:23 | Discharge Summary ---
Providers - Providers Date of Admission: 07/28/19 04:06 Date of discharge: 07/29/19 Attending physician: MAYUR SWAN 07/28/19 03:54 Consult to Physician [CONS] Urgent Comment: Dr. Sutton spoke with Dr. Cruz @ [phone] Consulting Provider: SOSA CRUZ Physician Instructions: Reason For Exam: Choledocholithiasis Primary care physician: ANIBAL NGO Hospitalization Reason for admission: upper abdominal pain, hematuria, cholelithiasis, anemia Condition: Stable Pertinent studies: CT scan of the abdomen and pelvis showed cholelithiasis, hematochezia, uterus, possible choledocholithiasis. Abdominal ultrasound showed cholelithiasis Cholangiopancreatography MRI showed no evidence of choledocholithiasis.> Pancreatitis was suggested. However patient's lipase was normal. Examination of alcohol use disorder Procedures: None Hospital course: 39-year-old female with history of ovarian cyst, chronic constipation, colitis, GERD and anemia who presents to [facility] ED with complaints of abdominal pain. Patient friend is present at bedside. Patient has requested that her friend interprets for her. Patient has been experiencing right upper quadrant pain for the past 1 to 2 days. The pain has progressively worsened over the course of the day and she rates her pain 8/10. The pain is constant and there are no aggravating factors. Has nausea. Denies emesis, fever, headache, melena, hematochezia or chest pain. Review of medical record shows patient was seen in the ED on 07/10 with complaints of urinary retention. Rodriguez was placed and she was discharged and given prescription for Diflucan. Patient is [address] scan of the abdomen showed cholelithiasis with possible choledocholithiasis. ERCP MRI showed no evidence of choledocholithiasis. Lipase on admission was normal. On admission but was commenced on PPIs IV fluid. Abdomen pain resolved. Patient tolerated to regular diet. He is therefore being discharged to follow-up primary care physician in 3-5 days. Disposition: - TO HOME OR SELFCARE - Discharge Diagnoses (1) Choledocholithiasis Status: Acute (2) Nausea & vomiting Status: Acute (3) UTI (urinary tract infection) Status: Acute Qualifiers: Urinary tract infection type: site unspecified Hematuria presence: without hematuria Qualified Code(s): N39.0 - Urinary tract infection, site not specified (4) Anemia due to blood loss, acute Status: Acute (5) Status post normal vaginal delivery Status: Acute Core Measure Documentation - Palliative Care Palliative Care/ Comfort Measures: Not Applicable - Core Measures Any of the following diagnoses?: DVT/PE, none Exam - Constitutional Vitals: Temp Pulse Resp BP Pulse Ox 98.9 F 73 14 109/67 98 07/29/19 05:52 07/29/19 07:48 07/29/19 05:52 07/29/19 07:48 07/29/19 05:52 General appearance: Present: no acute distress, well-nourished - EENT Eyes: Present: PERRL - Neck Neck: Present: supple, normal ROM - Respiratory Respiratory effort: normal Respiratory: bilateral: CTA - Cardiovascular Heart Sounds: Present: S1 & S2. Absent: rub, click - Extremities Extremities: pulses symmetrical, No edema Peripheral Pulses: within normal limits - Abdominal General gastrointestinal: Present: soft, non-tender, non-distended, normal bowel sounds - Integumentary Integumentary: Present: clear, warm, dry - Musculoskeletal Musculoskeletal: gait normal, strength equal bilaterally - Psychiatric Psychiatric: appropriate mood/affect, intact judgment & insight - Neurologic Neurologic: CNII-XII intact, moves all extremities Plan Activity: fall precautions Weight Bearing Status: Weight Bear as Tolerated Diet: regular Follow up with: [facility] [Provider Group] - 2-3 Days REBECCA LOPEZ MD [Staff Physician] - 2-3 Days Prescriptions: Docusate Sodium [Colace CAP] 100 mg PO BID PRN #60 cap PRN Reason: Constipation Ferrous Sulfate [Feosol 325 MG tab] 325 mg PO BID #60 tablet Pantoprazole [Protonix TAB] 40 mg PO BID #30 tablet
[2019-07-29] MEDS: PRENATAL VIT27-FE FUMARATE-FOLIC ACID VIT TAB PO SCH (13:46)
[2019-07-29 18:03] VITALS: BP 118/75
[2019-07-29] MEDS ORDERED: PANTOPRAZOLE 40 MG TAB PO SCH (22:00)
== END 2019-07-29 18:35 | disposition home or self-care (01) ==
LOC: ED 23:32 → 3A 07-28 04:06 → INTOOBSV 07-28 04:06
PROVIDERS: ADMIT Internal Medicine; ATTEND Family Medicine
DX: K80.20 Calculus of gallbladder without cholecystitis without obstruction (principal); N39.0 Urinary tract infection, site not specified; D64.9 Anemia, unspecified; K21.9 Gastro-esophageal reflux disease without esophagitis
CPT/HCPCS: 36415; 74177; 74181; 76705; 80048; 80053; 80076; 81001; 81025; 83036; 83690; 85007; 85025; 87086; 96365; 96366; 96367; 96368; 96372; 96375; 96376; 99284; 99285; C9113; G0378; J0696; J1644; J1885; J1956; J2405; J2543; J7030; Q9967

== ENCOUNTER 2021-07-02 07:00 | Emergency (ER) | payer OTHER ==
[2021-07-02 07:17] VITALS: BP 115/74
--- NOTE | 2021-07-02 07:32 | Event Note ---
ED Screening Note Date of service: 07/02/21 Time: 07:30 ED Screening Note: 41-year-old female presents to the emergency room complaining of chest pain that she has had 1 week. She states that today the chest pain was worse this morning approximately 3 AM. States it woke her up she has been having nausea sweating radiation of pain down her left arm and her back. He states that the chest pain is burning. She denies any headache no vomiting. She does have a history of her mother dying of an AR at the age of 64. Father has no heart disease that she is aware of. She currently has a history of hypercholesterolemia and borderline diabetes. Her meds are [id number] megavitamins. This initial assessment/diagnostic orders/clinical plan/treatment(s) is/are subject to change based on patients health status, clinical progression and re- assessment by fellow clinical providers in the ED. Further treatment and workup at subsequent clinical providers discretion. Patient/guardian urged not to elope from the ED as their condition may be serious if not clinically assessed and managed. Initial orders include: Chest pain protocol has been initiated. Patient will be best evaluated by the main ER docs.
--- NOTE | 2021-07-02 08:35 | Emergency Department Report ---
ED Chest Pain HPI - General Chief Complaint: Chest Pain Stated Complaint: CHESTPAIN Time Seen by Provider: 07/02/21 07:34 Source: patient Mode of arrival: Ambulatory Limitations: Language Barrier - History of Present Illness Initial Comments: 41-year-old female presents to the emergency department with complaint of some left-sided chest pain, under the breast, that has been going on intermittently over the past week but worsened greatly this morning at around 5 AM. It is sometimes associated with some pain down the left arm. Currently she says her chest pain is about 5 out of 10 in intensity. She took a full dose aspirin this morning with some improvement. The chest pain will worsen with certain movements of her body and arm. It is associated with some nausea without vomiting. She denies any tobacco use. No recent travel or sick contacts at home. No family history of early cardiac disease. She follows with Char[facility] Crowder. Severity scale (0 -10): 3 - Related Data Home Medications Medication Instructions Recorded Confirmed Last Taken Vitamin 1 tab PO DAILY 07/05/19 07/28/19 07/27/19 Previous Rx's Medication Instructions Recorded Last Taken Type Docusate Sodium [Colace CAP] 100 mg PO BID PRN #60 cap 07/29/19 Unknown Rx Ferrous Sulfate [Feosol 325 MG tab] 325 mg PO BID #60 tablet 07/29/19 Unknown Rx Pantoprazole Sodium [Protonix] 40 mg PO DAILY #30 granpkt.dr 07/29/19 Unknown Rx Pantoprazole [Protonix TAB] 40 mg PO BID #30 tablet 07/29/19 Unknown Rx Vit-Fe Fumar-FA [ 1 each PO DAILY tablet 07/29/19 Unknown Rx Vitamin] polyethylene glycoL 3350 [Miralax 17 gm PO BID powd.pack 07/29/19 Unknown Rx 3350] Allergies Allergy/AdvReac Type Severity Reaction Status Date / Time No Known Allergies Allergy Verified 05/09/18 00:31 Heart Score - HEART Score History: Slightly suspicious EKG: Normal Age: < 45 Risk factors: 1-2 risk factors (HLD) Troponin: < normal limit HEART Score: 1 - EKG Read Time Time EKG Completed: 07:05 EKG Read Time: 07:13 ED Review of Systems ROS: Stated complaint: CHESTPAIN Other details as noted in HPI Comment: All other systems reviewed and negative Constitutional: denies: chills, fever Eyes: denies: eye pain, vision change ENT: denies: ear pain, throat pain Respiratory: denies: cough, shortness of breath Cardiovascular: chest pain. denies: palpitations Gastrointestinal: nausea. denies: abdominal pain, vomiting Genitourinary: denies: dysuria, discharge Musculoskeletal: denies: back pain, joint swelling Skin: denies: rash, lesions Neurological: denies: headache, weakness ED Past Medical Hx - Past Medical History Previous Medical History?: Yes Hx Hypertension: No Hx Diabetes: No Hx Deep Vein Thrombosis: No Hx Renal Disease: No Hx Sickle Cell Disease: No Hx Seizures: No Hx Asthma: No Hx HIV: No Additional medical history: pt has ovarian cyst. Constipation - Surgical History Past Surgical History?: No - Social History Smoking Status: Never Smoker Substance Use Type: None - Medications Home Medications: Home Medications Medication Instructions Recorded Confirmed Last Taken Type Vitamin 1 tab PO DAILY 07/05/19 07/28/19 07/27/19 History Docusate Sodium [Colace CAP] 100 mg PO BID PRN #60 cap 07/29/19 Unknown Rx Ferrous Sulfate [Feosol 325 MG tab] 325 mg PO BID #60 tablet 07/29/19 Unknown Rx Pantoprazole Sodium [Protonix] 40 mg PO DAILY #30 granpkt.dr 07/29/19 Unknown Rx Pantoprazole [Protonix TAB] 40 mg PO BID #30 tablet 07/29/19 Unknown Rx Vit-Fe Fumar-FA [ 1 each PO DAILY tablet 07/29/19 Unknown Rx Vitamin] polyethylene glycoL 3350 [Miralax 17 gm PO BID powd.pack 07/29/19 Unknown Rx 3350] ED Physical Exam - General Limitations: Language Barrier - Other Other exam information: GENERAL: The patient is well-developed well-nourished. HENT: Normocephalic. Atraumatic. Patient has moist mucous membranes. EYES: Extraocular motions are intact. NECK: Supple. Trachea is midline. CHEST/LUNGS: Clear to auscultation. There is no respiratory distress noted. HEART/CARDIOVASCULAR: Regular. There is no tachycardia. There is no murmur. ABDOMEN: Abdomen is soft, nontender. Patient has normal bowel sounds. SKIN: Skin is warm and dry. NEURO: The patient is awake, alert, and oriented. The patient is cooperative. The patient has no focal neurologic deficits. Normal speech. MUSCULOSKELETAL: There is no tenderness or deformity. There is no limitation range of motion. ED Course Vital Signs 07/02/21 07/02/21 07/02/21 07:14 08:12 10:54 Temperature 98.2 F 98.4 F Pulse Rate 76 86 Respiratory 18 16 Rate Blood Pressure 115/74 115/74 [Left] O2 Sat by Pulse 97 100 98 Oximetry CARLOS score - Carlos Score Age > 65: (0) No Aspirin use within the Past 7 Days: (1) Yes 3 or more CAD Risk Factors: (0) No 2 or more Angina events in past 24 hrs: (1) Yes Known CAD with more than 50% Stenosis: (0) No Elevated Cardiac Markers: (0) No ST Deviation Greater than 0.5mm: (0) No CARLOS Score: 2 ED Medical Decision Making - Lab Data Result diagrams: 07/02/21 08:30 07/02/21 08:30 Lab Results 07/02/21 07/02/21 07/02/21 Range/Units 08:30 08:30 08:30 WBC 6.2 (4.5-11.0) K/mm3 RBC 4.53 (3.65-5.03) M/mm3 Hgb 11.9 (10.1-14.3) gm/dl Hct 37.3 (30.3-42.9) % MCV 82 (79-97) fl MCH 26 L (28-32) pg MCHC 32 (30-34) % RDW 14.4 (13.2-15.2) % Plt Count 331 (140-440) K/mm3 Lymph % (Auto) 34.5 (13.4-35.0) % Gulf % (Auto) 7.7 H (0.0-7.3) % Eos % (Auto) 3.2 (0.0-4.3) % Baso % (Auto) 0.9 (0.0-1.8) % Lymph # (Auto) 2.1 (1.2-5.4) K/mm3 Gulf # (Auto) 0.5 (0.0-0.8) K/mm3 Eos # (Auto) 0.2 (0.0-0.4) K/mm3 Baso # (Auto) 0.1 (0.0-0.1) K/mm3 Seg Neutrophils % 53.7 (40.0-70.0) % Seg Neutrophils # 3.3 (1.8-7.7) K/mm3 Sodium 140 (137-145) mmol/L Potassium 4.2 (3.6-5.0) mmol/L Chloride 104.5 (98-107) mmol/L Carbon Dioxide 24 (22-30) mmol/L Anion Gap 16 mmol/L BUN 12 (7-17) mg/dL Creatinine 0.6 (0.6-1.2) mg/dL Estimated GFR > 60 ml/min BUN/Creatinine Ratio 20 % Glucose 121 H (65-100) mg/dL Calcium 8.9 (8.4-10.2) mg/dL Total Bilirubin 0.30 (0.1-1.2) mg/dL AST 15 (5-40) units/L ALT 15 (7-56) units/L Alkaline Phosphatase 60 (35-129) units/L Troponin T < 0.010 (0.00-0.029) ng/mL Total Protein 7.3 (6.3-8.2) g/dL Albumin 4.1 (3.9-5) g/dL Albumin/Globulin Ratio 1.3 % Lipase 16 (13-60) units/L HCG, Qual Negative (Negative) 07/02/21 Range/Units 11:28 WBC (4.5-11.0) K/mm3 RBC (3.65-5.03) M/mm3 Hgb (10.1-14.3) gm/dl Hct (30.3-42.9) % MCV (79-97) fl MCH (28-32) pg MCHC (30-34) % RDW (13.2-15.2) % Plt Count (140-440) K/mm3 Lymph % (Auto) (13.4-35.0) % Gulf % (Auto) (0.0-7.3) % Eos % (Auto) (0.0-4.3) % Baso % (Auto) (0.0-1.8) % Lymph # (Auto) (1.2-5.4) K/mm3 Gulf # (Auto) (0.0-0.8) K/mm3 Eos # (Auto) (0.0-0.4) K/mm3 Baso # (Auto) (0.0-0.1) K/mm3 Seg Neutrophils % (40.0-70.0) % Seg Neutrophils # (1.8-7.7) K/mm3 Sodium (137-145) mmol/L Potassium (3.6-5.0) mmol/L Chloride (98-107) mmol/L Carbon Dioxide (22-30) mmol/L Anion Gap mmol/L BUN (7-17) mg/dL Creatinine (0.6-1.2) mg/dL Estimated GFR ml/min BUN/Creatinine Ratio % Glucose (65-100) mg/dL Calcium (8.4-10.2) mg/dL Total Bilirubin (0.1-1.2) mg/dL AST (5-40) units/L ALT (7-56) units/L Alkaline Phosphatase (35-129) units/L Troponin T < 0.010 (0.00-0.029) ng/mL Total Protein (6.3-8.2) g/dL Albumin (3.9-5) g/dL Albumin/Globulin Ratio % Lipase (13-60) units/L HCG, Qual (Negative) - EKG Data -: EKG Interpreted by Me EKG shows normal: sinus rhythm, axis, intervals, QRS complexes, ST-T waves Rate: normal - EKG Data When compared to previous EKG there are: previous EKG unavailable Interpretation: normal EKG - Radiology Data Radiology results: image reviewed interpreted by me: Chest x-ray does not show any acute process. There are no pleural effusions, obvious pneumonia and there is no pneumothorax. No widened mediastinum. - Medical Decision Making This patient presents to the emergency department with complaint of some left- sided chest pain. On examination she has normal heart and lung sounds to auscultation. She does not appear in any respiratory or acute distress. Her pain is reproducible with certain movements of her torso and her left arm. EKG does not have any morphology consistent with ST elevation myocardial infarction. Chest x-ray does not show any pneumonia, pleural effusions, pneumothorax, w idened mediastinum, or any other acute process. Labs have been unremarkable including CBC, metabolic panel and negative troponins x2. The patient was given a dose of Toradol and upon reevaluation states she is feeling greatly improved and the pain has resolved. Patient is low on the heart and CARLOS score. She is low on the Wells score criteria and negative on the pulmonary embolism rule out criteria. Vital signs reassuring throughout her ED course. For all these reasons the patient appears safe for discharge home at this time. Her contact information has been sent over to the [facility], and someone from their office should be contacting her shortly for close outpatient follow-up as part of our [facility] low risk chest pain protocol. Critical Care Time: No Critical care attestation.: If time is entered above; I have spent that time in minutes in the direct care of this critically ill patient, excluding procedure time. ED Disposition Clinical Impression: Chest pain Qualifiers: Chest pain type: unspecified Qualified Code(s): R07.9 - Chest pain, unspecified Disposition: 01 HOME / SELF CARE / HOMELESS Is pt being admited?: No Condition: Stable Instructions: Nonspecific Chest Pain, Adult, Chest Wall Pain Additional Instructions: Please follow-up with a primary care physician in the next few days. I am sending your contact information over to the [facility], and someone from their office should be contacting you shortly for close outpatient follow-up. Just in case, I am giving you a referral for one of their rag production worker, Dr. Guevara. Return to the emergency department with any worsening of your symptoms, new or concerning symptoms not addressed during this current emergency department visit, or with any acute distress. Referrals: PRIMARY MD BLAYNE [Primary Care Provider] - 2-3 Days RONEY GUEVARA MD [Staff Physician] - 2-3 Days Time of Disposition: 12:43 Print Language: CHINESE
[2021-07-02 08:47] LABS: Basophils # (Auto) 0.1 K/mm3 (0.0-0.1); Basophils % (Auto) 0.9 % (0.0-1.8); Eosinophils # (Auto) 0.2 K/mm3 (0.0-0.4); Eosinophils % (Auto) 3.2 % (0.0-4.3); Hematocrit 37.3 % (30.3-42.9); Hemoglobin 11.9 gm/dl (10.1-14.3); Lymphocytes # (Auto) 2.1 K/mm3 (1.2-5.4); Lymphocytes % (Auto) 34.5 % (13.4-35.0); Mean Corpuscular HGB Conc 32 % (30-34); Mean Corpuscular Volume 82 fl (79-97); Monocytes # (Auto) 0.5 K/mm3 (0.0-0.8); Monocytes % (Auto) 7.7 % (0.0-7.3); Platelet Count 331 K/mm3 (140-440); Red Blood Count 4.53 M/mm3 (3.65-5.03); Red Cell Distribution Width 14.4 % (13.2-15.2)
[2021-07-02 09:15] LABS: Alanine Aminotransferase 15 units/L (7-56); Albumin 4.1 g/dL (3.9-5); Blood Urea Nitrogen 12 mg/dL (7-17); Calcium 8.9 mg/dL (8.4-10.2); Hemolysis Index 3
[2021-07-02 09:21] LABS: BUN/Creatinine Ratio 20
[2021-07-02] MEDS ORDERED: KETOROLAC 30 MG/1 ML INJ IM ONE (09:27)
--- NOTE | 2021-07-02 09:45 | XRay Report ---
CHEST 1 VIEW INDICATION / CLINICAL INFORMATION: CP. Chest pain FINDINGS: SUPPORT DEVICES: None. HEART / MEDIASTINUM: No significant abnormality. LUNGS / PLEURA: No significant pulmonary or pleural abnormality. No pneumothorax. ADDITIONAL FINDINGS: No significant additional findings. IMPRESSION: 1. No acute findings. Signer Name: Dwayne Gongora MD Signed: 07/02/2021 9:40 AM Workstation Name: [id number]
== END 2021-07-02 12:51 | disposition home or self-care (01) ==
LOC: ED 07:00
DX: R07.89 Other chest pain (principal); Z79.899 Other long term (current) drug therapy
CPT/HCPCS: 36415; 71045; 80053; 83690; 84484; 84703; 85025; 93005; 96372; 99284; J1885

== ENCOUNTER 2022-02-13 08:30 | Outpatient (CLI) | payer OTHER | END 2022-02-13 08:31 | disposition home or self-care (01) | LOC: MAMMO 08:30 | PROVIDERS: ATTEND Family Medicine | DX: Z12.31 Encounter for screening mammogram for malignant neoplasm of breast (principal) | CPT/HCPCS: 77067 ==